=== PATIENT | female | born 1975 | race Caucasian/White ===

== ENCOUNTER → 2020-08-14 17:21 | Outpatient (CLI) | payer OTHER, SELFPAY ==
--- NOTE | ~2020-08-14 | XR_ITS ---
EXAMINATION: XR ankle LT min 3V, XR foot LT min 3V EXAM DATE: 08/14/2020 17:46 INDICATION: Initial encounter following injury, with pain of the left foot, ankle. Possible stress f racture. TECHNIQUE: Left foot dorsoplantar, lateral and oblique projections obtained and reviewed. Left ankle frontal, lateral and oblique projections obtained and reviewed. There is no prior study for compari son. FINDINGS: Left metatarsal bones unremarkable. The left ankle mortise appears intact. No perioste al reaction or band of sclerosis to suggest subacute stress fracture. There are no bony erosions iden tified. There are no acute fractures or dislocations identified. There is no subcutaneous gas. The soft tissue is unremarkable. There are no radiopaque foreign bodies. IMPRESSION: 1. Unremarkable left foot, ankle exam. Reviewed, dictated and finalized at location B. IMPRESSION: 1. Unremarkable left foot, ankle exam.
== END ==
PROVIDERS: PCP Internal Medicine; Visit Provider Internal Medicine
DX: M79.672 Pain in left foot (principal)
CPT/HCPCS: 73610; 73630

== ENCOUNTER → 2022-01-24 08:11 | Outpatient (CLI) | payer OTHER, SELFPAY ==
--- NOTE | ~2022-01-24 | MR_ITS ---
EXAMINATION: MR brain/brain stem wo con DATE: 01/24/2022 08:52 INDICATION: Dizziness. TECHNIQUE: Magnetic resonance imaging (MRI) of the brain and brainstem was performed without intraven ous contrast. Sequences included sagittal and axial T1-weighted FSE, axial diffusion-weighted FS EPI, axial T2*-weighted GRE, axial T2-weighted FLAIR Propeller, axial T2-weighted Propeller, small field- of-view coronal FIESTA, small yqsrk-[id number]-zbmc coronal T1-weighted FSE, and small htglb-kr-itny axial T1 -weighted SPGR. Apparent diffusion coefficient (ADC) maps were created. COMPARISON: Brain MRI 03/10/2017 FINDINGS: There are scattered areas of nonspecific increased T2-weighted signal intensity in the cere bral white matter. There is no intracranial hemorrhage, acute infarction, or abnormal intracranial ma ss lesion. The ventricles are normal in size. The internal auditory canals and inner ears are normal. There are bilateral otomastoid effusions. The orbits are normal. IMPRESSION: 1. Stable mild nonspecific cerebral white matter disease. The differential diagnosis includes prematu re chronic small vessel ischemic disease (especially if the patient has cardiovascular risk factors), demyelinating disease such as multiple sclerosis, drug abuse, vasculitis, or reactive astrocytosis ( gliosis) secondary to nonspecific etiology. 2. Bilateral otomastoid effusions. Reviewed, dictated and finalized at location A. IMPRESSION: 1. Stable mild nonspecific cerebral white matter disease. The differential diag nosis includes premature chronic small vessel ischemic disease (especially if t he patient has cardiovascular risk factors), demyelinating disease such as mult iple sclerosis, drug abuse, vasculitis, or reactive astrocytosis (gliosis) seco ndary to nonspecific etiology. 2. Bilateral otomastoid effusions.
== END ==
PROVIDERS: PCP Internal Medicine; Visit Provider Internal Medicine
DX: R42 Dizziness and giddiness (principal); R93.0 Abnormal findings on diagnostic imaging of skull and head, not elsewhere classified
CPT/HCPCS: 70551

== ENCOUNTER 2022-02-25 13:09 | Outpatient (CLI) | payer OTHER, SELFPAY | END 2022-02-25 13:10 | disposition home or self-care (01) | LOC: ANHAUDIO 13:10 | PROVIDERS: PCP Internal Medicine; Visit Provider Otolaryngology | DX: H66.92 Otitis media, unspecified, left ear (principal) | CPT/HCPCS: 92557; 92567 ==

== ENCOUNTER 2022-04-17 07:41 | Outpatient (CLI) | payer OTHER, SELFPAY ==
[2022-04-17 08:17] LABS: Hematocrit 41.2 % (37.0-47.0); Hemoglobin 12.6 g/dL (12.0-15.0)
[2022-04-17 08:37] LABS: Anion Gap 5 mmol/L (8-16); Blood Urea Nitrogen 15 mg/dL (7-17); Calcium 9.3 mg/dL (8.4-10.2); Carbon Dioxide 26 mmol/L (22-30); Chloride 106 mmol/L (98-107); Estimated Glomerular Filt Rate > 60; Glucose 118 mg/dL (65-110); Potassium 4.5 mmol/L (3.4-5.0); Sodium 137 mmol/L (137-145)
== END 2022-04-17 07:42 | disposition home or self-care (01) ==
PROVIDERS: Anesthesiology; PCP Internal Medicine; Visit Provider Otolaryngology
DX: D64.9 Anemia, unspecified (principal); Z79.899 Other long term (current) drug therapy; Z01.818 Encounter for other preprocedural examination
CPT/HCPCS: 36415; 80048; 85014; 85018

== ENCOUNTER 2022-04-22 00:11 | Day surgery (SDC) | payer OTHER, SELFPAY ==
[2022-04-15 10:56] VITALS: BMI 49.1
--- NOTE | 2022-04-15 11:12 | PC.NURSE ---
Report to the Outpatient Waiting Room, entrance under the green pavilion located off [facility], at time 6:30 on date 04/22/22. OR Time: 8:30. - You and your visitor will be asked a series of questions to screen for COVID 19 for your protection. - Only one visitor is allowed at this time. - The patient visitor is requested to leave or wait in car when not with patient. - A mask is required within the hospital. Patients may have clear liquids (water, carbonated beverages, clear teas, apple juice) until 3 hours prior to surgery (5:30) with a maximum of 20 ounces. - No food from midnight until time of surgery Take the following medications with a SIP of water the morning of surgery: INHALERS, CITALOPRAM, LORAZEPAM (IF NEEDED) Medications to discontinue per physician: VITAMINS/SUPPLEMENTS Date to take last dose: 04/18/22 Please no make-up, nail kyrgyz, hairspray, perfume, deodorant, or body powder the day of surgery. No jewelry (including any body piercings) or valuables the day of surgery, leave them at home. Please take a shower or bath the night before, or the morning of, surgery with an antibacterial soap. Wear comfortable, loose fitting clothing. - Jewelry must be removed prior to entering the operating room. Rings and piercings that are not removed may be cut off. - The hospital will not accept responsibility for valuables. - Please leave all valuables, including medications, at home the day of surgery. If you are going home after surgery, a licensed pile driver operator must drive you home. - NO public transportation without another adult. - We recommend that an adult stay with you for 24 hours following discharge. - We also recommend that you do not drive, make important decision, drink alcoholic beverages, or take any drugs that were not prescribed by your health care provider for at least 24 hours after your discharge time. Follow any additional instructions given to you from your surgeon. If you or anyone in your household have experienced Covid symptoms in the past week, please notify your surgeon or the nurse liaison at the phone number below for possible testing. Telephone instructions given to PT - MARGARITA VASQUEZ and asked if any additional questions and then verbalized understanding. Patient advised to call surgeon office or pre surgery nurse liaison [phone] if any additional questions.
--- NOTE | 2022-04-21 06:35 | PM.HPGS ---
History of Present Illness History of Present Illness Consent: Risks, benefits, and alternatives have been discussed and questions answered. Patient agrees to proceed with procedure. Chief complaint: Rt Chronic Otitis Media Narrative: Melissa Alfonso is a 47 year old female she has a long history of tubes and has an air bone gap on both sides with audiogram Review of Systems Review of Systems: All systems reviewed & are unremarkable except as noted in HPI and below Constitutional: Constitutional: Reports as per HPI and Reports no additional constitutional complaints [facility] Past Medical History Medical History (Updated 04/21/22 @ 06:38 by Marco Tucker MD) Anxiety Depression Surgical History Surgical History History of D&C History of placement of ear tubes History of tooth extraction Family History Family History Mother Diabetes mellitus Family history of sleep apnea Hypertension Cerebrovascular accident Father , age 74 Family history of lung cancer Unknown CAD (coronary artery disease) Cerebrovascular accident Social History Social History Smoking status: Never smoker Alcohol intake: current Alcohol use details: EXTREMELY RARE Substance use: never Substance use type: does not use 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 Gender identity (if verbalized by the patient): Female Spiritual care concerns: No Comments social family medical past medical history all unremarkable Meds Home Medications and Allergies Home Medications Medication Instructions Recorded Confirmed Type budesonide-formoterol HFA 160 2 puff inhalation Q12H 09/19/19 04/15/22 History mcg-4.5 mcg/actuation aerosol inhaler (Symbicort) ergocalciferol (vitamin D2) 1,250 50,000 unit PO WEEKLY 09/19/19 04/15/22 History mcg (50,000 unit) capsule fexofenadine 180 mg tablet 180 mg PO DAILY 09/19/19 04/15/22 History (Cyndee Allergy) furosemide 20 mg tablet (Lasix) 20 mg PO QAM 09/19/19 04/15/22 History latanoprost 0.005 % eye drops 1 drop ophthalmic (eye) DAILY 09/19/19 04/15/22 History levalbuterol tartrate 45 2 inhalation inhalation Q6H 09/19/19 04/15/22 History mcg/actuation aerosol inhaler (Xopenex HFA) lorazepam 1 mg tablet 1 mg PO BID PRN Anxiety 09/19/19 04/15/22 History medroxyprogesterone 10 mg tablet 10 mg PO DAILY 09/19/19 04/15/22 History (Provera) brimonidine 0.025 % eye drops 1 drop ophthalmic (eye) QID PRN 09/21/19 04/15/22 History Dry Eyes citalopram 20 mg tablet 20 mg PO DAILY 09/21/19 04/15/22 History cyanocobalamin (vitamin B-12) 1,000 mcg PO DAILY 09/21/19 04/15/22 History 1,000 mcg capsule ferrous sulfate 325 mg (65 mg 325 mg PO DAILY 09/21/19 04/15/22 History iron) tablet rosuvastatin 10 mg tablet (Crestor) 20 mg PO DAILY 05/07/20 04/15/22 History pantoprazole 40 mg tablet,delayed 40 mg PO QAM 07/25/21 04/15/22 History release meclizine 25 mg tablet 25 mg PO TID PRN Vertigo 02/06/22 04/15/22 History multivitamin with minerals-folic 1 tablet PO DAILY 02/06/22 04/15/22 History acid 200 mcg chewable tablet (One-A-Day Women VitaCraves) Allergies Allergy/AdvReac Type Severity Reaction Status Date / Time No Known Drug Allergies Allergy Unknown unknown Verified 04/15/22 10:46 Exam HENMT: Head: normal to inspection Ears: TM abnormal ( TMs retracted bilaterally) General nose exam: Normal nares present Face and sinus: normal facial exam Assessment and Plan Assessment and plan (1) Chronic otitis media of both ears: Code(s): H66.93 - Otitis media, unspecified, bilateral Status: Acute (2) Bilateral chronic otitis media: Code(s): H66.93 - Otitis media, unspecified, bilateral Status: Acute Plan plan is bilateral
[2022-04-22] VITALS (7 sets, daily range): BP systolic 116–149; BP diastolic 72–90; PULSE 65–98; RESP 12–18; TEMP 36.6–36.8; O2SAT 93–100
--- NOTE | 2022-04-22 06:20 | WPDHPUPDATE1 ---
History and Physical Update Update Date/Time: 04/22/22 06:20 History and Physical has been reviewed, including an updated exam of the patient. There are NO changes in the patient's condition. Risks, benefits, and alternatives have been discussed and questions answered. Patient agrees to proceed with procedure.
[2022-04-22] MEDS: LACTATED RINGERS 1,000 ML 30 ML IV CONT (07:00)
[2022-04-22] MEDS: ACETAMINOPHEN 500 MG TABLET 1000 MG PO (07:03)
--- NOTE | 2022-04-22 07:13 | WPDANESEPPF ---
Anes - Initial Pre Proc Eval Procedure: Operation Date: 04/22/22 08:30 Proposed Procedures p Right Myringotomy with T-Tube Insertion - Marco Tucker MD Date/Time: 04/22/22 07:13 Surgeon: Marco Tucker MD Pre Op Diagnosis: Rt Chronic Otitis Media Patient Data Age: 47 Gender: F Height: 1.56 m Weight: 120 kg Allergies Allergy/AdvReac Type Severity Reaction Status Date / Time No Known Drug Allergies Allergy Unknown unknown Verified 04/15/22 10:46 Home Medications Medication Instructions Recorded Confirmed Type budesonide-formoterol HFA 160 2 puff inhalation Q12H 09/19/19 04/15/22 History mcg-4.5 mcg/actuation aerosol inhaler (Symbicort) ergocalciferol (vitamin D2) 1,250 50,000 unit PO WEEKLY 09/19/19 04/15/22 History mcg (50,000 unit) capsule fexofenadine 180 mg tablet 180 mg PO DAILY 09/19/19 04/15/22 History (Cyndee Allergy) furosemide 20 mg tablet (Lasix) 20 mg PO QAM 09/19/19 04/15/22 History latanoprost 0.005 % eye drops 1 drop ophthalmic (eye) DAILY 09/19/19 04/15/22 History levalbuterol tartrate 45 2 inhalation inhalation Q6H 09/19/19 04/15/22 History mcg/actuation aerosol inhaler (Xopenex HFA) lorazepam 1 mg tablet 1 mg PO BID PRN Anxiety 09/19/19 04/15/22 History medroxyprogesterone 10 mg tablet 10 mg PO DAILY 09/19/19 04/15/22 History (Provera) brimonidine 0.025 % eye drops 1 drop ophthalmic (eye) QID PRN 09/21/19 04/15/22 History Dry Eyes citalopram 20 mg tablet 20 mg PO DAILY 09/21/19 04/15/22 History cyanocobalamin (vitamin B-12) 1,000 mcg PO DAILY 09/21/19 04/15/22 History 1,000 mcg capsule ferrous sulfate 325 mg (65 mg 325 mg PO DAILY 09/21/19 04/15/22 History iron) tablet rosuvastatin 10 mg tablet (Crestor) 20 mg PO DAILY 05/07/20 04/15/22 History pantoprazole 40 mg tablet,delayed 40 mg PO QAM 07/25/21 04/15/22 History release meclizine 25 mg tablet 25 mg PO TID PRN Vertigo 02/06/22 04/15/22 History multivitamin with minerals-folic 1 tablet PO DAILY 02/06/22 04/15/22 History acid 200 mcg chewable tablet (One-A-Day Women VitaCraves) Patient hx anesthesia problems: none Family hx anesthesia problems: none Results Review: All pre-operative results and documents have been reviewed as part of the pre-operative evaluation. [facility] Past Medical History Medical History (Updated 04/22/22 @ 07:15 by Venancio Mcgovern MD) Anxiety Bilateral chronic otitis media Depression Hyperlipidemia Morbid obesity Obstructive sleep apnea (adult) (pediatric) Unspecified asthma Surgical History Surgical History History of D&C History of placement of ear tubes History of tooth extraction Family History Family History Mother Diabetes mellitus Family history of sleep apnea Hypertension Cerebrovascular accident Father , age 74 Family history of lung cancer Unknown CAD (coronary artery disease) Cerebrovascular accident Social History Social History Smoking status: Never smoker Alcohol intake: current Alcohol use details: rarely Substance use: never Substance use type: does not use Living arrangements: alone 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
--- NOTE | 2022-04-22 08:52 | W.PM.PROC2 ---
Procedure Note - Detailed Date of Procedure 04/22/22 Pre-op Diagnosis Rt Chronic Otitis Media Post-op Diagnosis Same Procedure Performed Right myringotomy and T-tube insertion Surgeon Marco Tucker MD Description of Procedure Patient's prednisone is general anesthesia the right ear was inspected an anterosuperior incision made brownish fluid aspirated and a T-tube inserted
== END 2022-04-22 10:26 | disposition home or self-care (01) ==
PROVIDERS: PCP Internal Medicine; Visit Provider Otolaryngology
PROC: (CPT 69436; principal; 2022-04-22 08:30)
DX: H66.91 Otitis media, unspecified, right ear (principal); F41.9 Anxiety disorder, unspecified; F32.A Depression, unspecified; E78.5 Hyperlipidemia, unspecified; G47.33 Obstructive sleep apnea (adult) (pediatric); J45.909 Unspecified asthma, uncomplicated; E66.01 Morbid (severe) obesity due to excess calories; Z68.43 Body mass index [BMI] 50.0-59.9, adult; Z79.51 Long term (current) use of inhaled steroids
CPT/HCPCS: 69436; 36415; 80048; 85014; 85018; A9270; J1100; J2250; J2405; J2704; J3010; J7120

== ENCOUNTER 2023-02-28 12:05 | Emergency (ER) | payer OTHER, SELFPAY ==
--- NOTE | ~2023-02-28 | XR_ITS ---
EXAMINATION: XR chest 2V DATE: 02/28/2023 12:37 INDICATION: Cough and wheezing TECHNIQUE: PA and lateral views of the chest are obtained. COMPARISON: None available FINDINGS: There are minimal airspace opacities of the lung bases. No pleural effusion or pneumothorax . The cardiomediastinal silhouette is normal. The visualized bones and soft tissues are unremarkable. IMPRESSION: 1. Minimal airspace opacities of the lung bases, consistent with atelectasis versus pneumonia. Reviewed, dictated and finalized at location A. IMPRESSION: 1. Minimal airspace opacities of the lung bases, consistent with atelectasis ve rsus pneumonia.
[2023-02-28 12:13] VITALS: BP 149/96; PULSE 118; RESP 22; TEMP 36.6; O2SAT 96
[2023-02-28 13:02] LABS: Influenza A QL RT-PCR Negative (Negative); Influenza B QL RT-PCR Negative (Negative); SARS-CoV-2 RNA PCR Negative (Negative)
--- NOTE | 2023-02-28 14:56 | ED.GENADULT ---
HPI - General Adult General Chief complaint: Asthma Stated complaint: sob, asthma Time Seen by Provider: 02/28/23 14:41 History of Present Illness HPI narrative: 47-year-old female history of asthma presented to the emergency department for evaluation of 1 week of increased cough and congestion. Patient states she did have follow-up with her primary care physician last week and was started on a Z-Jeffry. Patient was not started on steroids at this time. Patient states that she has felt improved after the Z-Jeffry but once the pack was completed she started having worsening symptoms again. Related Data Home Medications Medication Instructions Recorded Confirmed budesonide-formoterol HFA 160 2 puff inhalation Q12H 09/19/19 12/01/22 mcg-4.5 mcg/actuation aerosol inhaler (Symbicort) ergocalciferol (vitamin D2) 1,250 50,000 unit PO WEEKLY 09/19/19 12/01/22 mcg (50,000 unit) capsule fexofenadine 180 mg tablet 180 mg PO DAILY 09/19/19 12/01/22 (Cyndee Allergy) furosemide 20 mg tablet (Lasix) 20 mg PO QAM 09/19/19 12/01/22 latanoprost 0.005 % eye drops 1 drop ophthalmic (eye) DAILY 09/19/19 12/01/22 levalbuterol tartrate 45 2 inhalation inhalation Q6H 09/19/19 12/01/22 mcg/actuation aerosol inhaler (Xopenex HFA) lorazepam 1 mg tablet 1 mg PO BID PRN Anxiety 09/19/19 12/01/22 medroxyprogesterone 10 mg tablet 10 mg PO DAILY 09/19/19 12/01/22 (Provera) brimonidine 0.025 % eye drops 1 drop ophthalmic (eye) QID PRN 09/21/19 12/01/22 Dry Eyes citalopram 20 mg tablet 20 mg PO DAILY 09/21/19 12/01/22 cyanocobalamin (vitamin B-12) 1,000 mcg PO DAILY 09/21/19 12/01/22 1,000 mcg capsule ferrous sulfate 325 mg (65 mg 325 mg PO DAILY 09/21/19 12/01/22 iron) tablet rosuvastatin 10 mg tablet (Crestor) 20 mg PO DAILY 05/07/20 12/01/22 pantoprazole 40 mg tablet,delayed 40 mg PO QAM 07/25/21 12/01/22 release multivitamin with minerals-folic 1 tablet PO DAILY 02/06/22 12/01/22 acid 200 mcg chewable tablet (One-A-Day Women VitaCraves) Allergies Allergy/AdvReac Type Severity Reaction Status Date / Time No Known Drug Allergies Allergy Unknown unknown Verified 12/01/22 08:20 Review of Systems Review of Systems: All systems reviewed & are unremarkable except as noted in HPI and below PMFSH Past Medical History Medical History Anxiety Bilateral chronic otitis media Depression Hyperlipidemia Morbid obesity Obstructive sleep apnea (adult) (pediatric) Unspecified asthma Surgical History Surgical History History of D&C History of placement of ear tubes History of tooth extraction Family History Family History Mother Diabetes mellitus Family history of sleep apnea Hypertension Cerebrovascular accident Father , age 74 Family history of lung cancer Unknown CAD (coronary artery disease) Cerebrovascular accident Social History Social History Smoking status: Never smoker Alcohol intake: current Alcohol use details: rarely Substance use: never Substance use type: does not use Living arrangements: alone Occupation/Education: occupation 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 HEAD: normocephalic, atraumatic. EYES: PERRLA/EOMI, conjunctivae clear. NOSE: Normal no drainage NECK: Supple. No adenopathy, no masses. RESPIRATORY: Airway patent, respirations nonlabored. Wheezing bilaterally. CARDIOVASCULAR: Regular rate and rhythm without murmurs rubs or gallops. ABDOMINAL: Soft, nontender, nondistended,
[2023-02-28] MEDS: methylPREDNISolone SOD SUCC 125 MG VIAL IV PUSH (15:20)
[2023-02-28 15:24] VITALS: O2SAT 96
[2023-02-28] MEDS: LEVALBUTEROL NEB 1.25 MG/3 ML 2.5 MG INHALATION (15:37)
[2023-02-28] MEDS: AMOXICILLIN/CLAVULANATE K 875-125 MG TAB 1 TABLET PO (16:14)
[2023-02-28] MEDS: AZITHROMYCIN 250 MG TABLET 500 MG PO (16:14)
[2023-02-28 16:20] VITALS: BP 111/50; PULSE 104; RESP 20; O2SAT 99
== END 2023-02-28 16:22 | disposition home or self-care (01) ==
PROVIDERS: Emergency Medicine; Emergency Provider Emergency Medicine; PCP Internal Medicine
DX: J18.9 Pneumonia, unspecified organism (principal); J45.909 Unspecified asthma, uncomplicated; E78.5 Hyperlipidemia, unspecified; G47.33 Obstructive sleep apnea (adult) (pediatric); E66.01 Morbid (severe) obesity due to excess calories; Z68.43 Body mass index [BMI] 50.0-59.9, adult; F41.9 Anxiety disorder, unspecified; F32.A Depression, unspecified
CPT/HCPCS: 71046; 87636; 96374; 99284; A9270; J2930

== ENCOUNTER 2024-11-07 08:05 | Emergency (ER) | payer OTHER, SELFPAY ==
--- NOTE | ~2024-11-07 | XR_ITS ---
Clinical Indication: Shortness of breath PA and lateral views of the chest: Comparison: 02/26/2023 Findings: The lungs are clear, without evidence of focal consolidation or pleural effusion. Cardiome diastinal silhouette is within normal limits. Bones and soft tissues are unremarkable. Impression: Normal chest. Reviewed, dictated and finalized at location . STRIAL PARAMEDIC Impression: Normal chest.
--- NOTE | 2024-11-07 08:09 | ECG_ITS ---
Test Date: 2024-11-07 08:14:28 Measurements Intervals [place] Rate: 78 P: 67 ME: 136 QRS: 27 QRSD: 93 T: 21 QT: 366 QTc: 419 Interpretive Statements SINUS RHYTHM WITH MARKED SINUS ARRHYTHMIA ST DEVIATION AND MODERATE T-WAVE ABNORMALITY, CONSIDER ANTERIOR ISCHEMIA [-0.1+ mV T WAVE IN V3/V4] Poor R wave progression No previous ECG available for comparison Electronically Signed On 11-07-2024 18:14:26 TURNING MACHINE SET UP OPERATOR by Macarena Chand M.D.
[2024-11-07 08:11] VITALS: BP 161/105; PULSE 81; RESP 17; TEMP 36.4; O2SAT 98
[2024-11-07 08:17] VITALS: PULSE 79; O2SAT 98
[2024-11-07 08:35] LABS: Basophils Percent Auto 0.4 % (0.2-1.2); Hematocrit 40.7 % (37.0-47.0); Immature Granulocyte Absolute 0.03 K/mm3 (0.00-0.031); Immature Granulocyte Percent A 0.4 % (0-0.5); Lymphocytes Absolute Auto 2.62 K/mm3 (0.9-3.2); Lymphocytes Percent Auto 35.2 % (18.3-44.2); Mean Corpuscular HGB Conc 31.9 g/dl (32-36); Mean Corpuscular Hemoglobin 27.1 pg (26-34); Mean Corpuscular Volume 84.8 fl (80-100); Mean Platelet Volume 9.6 fl (7.4-10.4); Monocytes Absolute Auto 0.6 K/mm3 (0.1-0.6); Monocytes Percent Auto 7.8 % (2.6-8.5); Neutrophils Absolute Auto 4.2 K/mm3 (1.3-6.7); Neutrophils Percent Auto 56.2 % (45.5-73.1); Platelet Count Result 286 k/mm3 (150-375); Red Cell Distribution Width 14.3 % (11.5-14.5); White Blood Count 7.4 K/mm3 (4.5-10.0)
[2024-11-07 08:58] LABS: Alanine Aminotransferase 45 U/L (6-35); Albumin Level 3.9 g/dL (3.5-5.1); Alkaline Phosphatase 111 U/L (38-126); Anion Gap 5 mmol/L (4-12); Aspartate Amino Transferase 38 U/L (14-36); Bilirubin,Total 0.3 mg/dL (0.2-1.3); Blood Urea Nitrogen 14 mg/dL (7-17); Calcium 9.3 mg/dL (8.4-10.2); Carbon Dioxide 26 mmol/L (22-30); Chloride 106 mmol/L (98-107); Estimated CRCL calculation 74 ml/min; Estimated Glomerular Filt Rate > 60; Glucose 126 mg/dL (65-110); Potassium 3.6 mmol/L (3.4-5.0); Sodium 137 mmol/L (137-145)
[2024-11-07 10:05] VITALS: BP 108/79; PULSE 80; RESP 22; O2SAT 97
[2024-11-07] MEDS: SODIUM CHLORIDE 0.9% IV 1,000 ML 999 ML IV CONT (10:12)
[2024-11-07 10:36] LABS: Troponin I < 0.012 ng/mL (0.000-0.034)
[2024-11-07 11:09] LABS: Influenza A QL RT-PCR Positive (Negative); Influenza B QL RT-PCR Negative (Negative); SARS-CoV-2 RNA PCR Negative (Negative)
[2024-11-07 12:09] VITALS: BP 122/46; PULSE 78; RESP 20; O2SAT 100
[2024-11-07 13:47] VITALS: BP 120/51; PULSE 85; RESP 22; O2SAT 97
--- NOTE | 2024-11-07 13:47 | ED.SOB ---
HPI - SOB/Dyspnea General Chief Complaint: Shortness of Breath/Dyspnea Stated Complaint: cough, SOB Time Seen by Provider: 11/07/24 08:10 Source: patient Limitations: no limitations History of Present Illness HPI Narrative: 49-year-old with a history of hypertension, diabetes, hyperlipidemia complains nausea vomiting cough shortness in the last 2 days however nausea and vomiting better. She denies any abdominal pain. No previous history of COPD or asthma. Denies CAD. MD elicited complaint: shortness of breath and cough Onset (ago): day(s) (3) Timing: constant Exacerbating factors: nothing Relieving factors: nothing Associated symptoms: chest pain and cough Treatment prior to arrival: none Related Data Home oxygen amount: none Home Medications ?Medication ?Instructions ?Recorded ?Confirmed ?Last Taken ?Type budesonide-formoterol HFA 160 2 puff inhalation Q12H 09/19/19 08/08/24 Unknown History mcg-4.5 mcg/actuation aerosol inhaler (Symbicort) ergocalciferol (vitamin D2) 1,250 50,000 unit PO WEEKLY 09/19/19 08/08/24 Unknown History mcg (50,000 unit) capsule fexofenadine 180 mg tablet 180 mg PO DAILY 09/19/19 08/08/24 Unknown History (Cyndee Allergy) furosemide 20 mg tablet (Lasix) 20 mg PO QAM 09/19/19 08/08/24 Unknown History latanoprost 0.005 % eye drops 1 drop ophthalmic (eye) DAILY 09/19/19 08/08/24 Unknown History medroxyprogesterone 10 mg tablet 10 mg PO DAILY 09/19/19 08/08/24 Unknown History (Provera) brimonidine 0.025 % eye drops 1 drop ophthalmic (eye) QID PRN 09/21/19 08/08/24 Unknown History Dry Eyes citalopram 20 mg tablet 20 mg PO DAILY 09/21/19 08/08/24 Unknown History cyanocobalamin (vitamin B-12) 1,000 mcg PO DAILY 09/21/19 08/08/24 Unknown History 1,000 mcg capsule ferrous sulfate 325 mg (65 mg 325 mg PO DAILY 09/21/19 08/08/24 Unknown History iron) tablet rosuvastatin 10 mg tablet (Crestor) 20 mg PO DAILY 05/07/20 08/08/24 Unknown History pantoprazole 40 mg tablet,delayed 40 mg PO QAM 07/25/21 08/08/24 Unknown History release multivitamin with minerals-folic 1 tablet PO DAILY 02/06/22 08/08/24 Unknown History acid 200 mcg chewable tablet (One-A-Day Women VitaCraves) metformin 500 mg tablet 500 mg PO DAILY 04/23/23 08/08/24 Unknown History lorazepam 1 mg tablet 1 mg PO DAILY PRN 09/12/24 Unknown History Allergies Allergy/AdvReac Type Severity Reaction Status Date / Time No Known Drug Allergies Allergy Unknown unknown Verified 11/07/24 08:23 Review of Systems Review of Systems: All systems reviewed & are unremarkable except as noted in HPI and below Constitutional: Constitutional: Reports no additional constitutional complaints Eyes: Eyes: Reports no additional eye complaints ENT: Reports system reviewed and no additional complaints, except as documented Cardiovascular: Cardiovascular: Reports as per HPI Respiratory: Respiratory: Reports as per HPI Gastrointestinal: Gastrointestinal: Reports no additional gastrointestinal complaints Integumentary/Breasts: Skin/Breast: Reports system reviewed and no additional complaints, except as docu PMFSH Past Medical History Medical History Ear infection Hyperlipidemia Bilateral chronic otitis media Morbid obesity Anxiety Depression Obstructive sleep apnea (adult) (pediatric) Unspecified asthma Surgical History Surgical History History of D&C History of placement of ear tubes History of tooth extraction Family History Family History Mother Diabetes mellitus Family history of sleep apnea Hypertension Cerebrovascular accident Father , age 74 Family history of lung cancer Unknown CAD (coronary artery disease) Cerebrovascular accident Social History Social History Social History: Caffeine- soda Smoking status: Never smoker Alcohol intake: current Alcohol use details: RARELY Substance use: never Substance use type: does not use Lack of Transportation: No Lack of Food: Never True Current Housing: I Have Housing Concerned About Future Housing: No Difficulty Paying Gas/Electric Bills: No Difficulty Paying for Meds: No Currently Unemployed: No Education: Associate Degree Difficulty w/ Childcare or Family Care: No Living arrangements: alone Occupation/Education: occupation 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 HEAD: Normocephalic, atraumatic. EYES: PERRLA and EOMI. ENT: Nares clear, no rhinorrhea or epistaxis. Mucous membranes moist. NECK: Supple. CHEST: Clear to auscultation. No respiratory distress. HEART: Regular rate and rhythm. No murmur heard. Normal peripheral pulses. ABDOMEN: Soft, nontender, nondistended, normal active bowel sounds. EXTREMITIES: Normal range of motion. No edema. SKIN: Warm, dry, no rash. NEURO: No focal deficits. Alert and oriented x3. PSYCH: Normal mood and affect. Course Course Emergency Course: Inform patient about the lab work, EKG findings. Advised to take Tylenol ibuprofen for pain. Try to be tested she is not a candidate for Tamiflu at this time is it has been more than 3 days with Vital Signs Vital signs: Vital Signs Temperature 36.4 C L 11/07/24 08:11 Pulse Rate 81 11/07/24 08:11 Respiratory Rate 17 11/07/24 08:11 Blood Pressure 161/105 H 11/07/24 08:11 Pulse Oximetry 98 11/07/24 08:11 Oxygen Delivery Room Air 11/07/24 08:11 Temperature 36.4 C L 11/07/24 08:11 Pulse Rate 78 11/07/24 12:09 Respiratory Rate 20 11/07/24 12:09 Blood Pressure 122/46 L 11/07/24 12:09 Pulse Oximetry 100 11/07/24 12:09 Oxygen Delivery Room Air 11/07/24 08:17 MDM - SOB/Dyspnea Differential Diagnosis Differential diagnosis: Likely acute exacerbation of chronic obstructive airways disease, congestive heart failure, community acquired pneumonia and asthma with exacerbation Medical Records Attestation: I reviewed the patient's medical records. Lab Data Attestation: I reviewed the patient's lab results. 11/07/24 08:26 11/07/24 08:26 Labs: Lab Results 11/07/24 11/07/24 11/07/24 Range/Units 08:25 08:26 10:18 WBC 7.4 (4.5-10.0) K/mm3 RBC 4.80 (4.2-5.4) M/mm3 Hgb 13.0 (12.0-15.0) g/dL Hct 40.7 (37.0-47.0) % MCV 84.8 (80-100) fl MCH 27.1 (26-34) pg MCHC 31.9 L (32-36) g/dl RDW 14.3 (11.5-14.5) % Plt Count 286 (150-375) k/mm3 MPV 9.6 (7.4-10.4) fl Immature Gran % (Auto) 0.4 (0-0.5) % Neut % (Auto) 56.2 (45.5-73.1) % Lymph % (Auto) 35.2 (18.3-44.2) % Wythe % (Auto) 7.8 (2.6-8.5) % Eos % (Auto) 0.0 (0-4.4) % Baso % (Auto) 0.4 (0.2-1.2) % Lymph # (Auto) 2.62 (0.9-3.2) K/mm3 Wythe # (Auto) 0.6 (0.1-0.6) K/mm3 Eos # (Auto) 0.0 (0-0.3) K/mm3 Baso # (Auto) 0.0 (0.0-0.1) K/mm3 Abs Immat Gran (auto) 0.03 (0.00-0.031) K/mm3 Absolute Neuts (auto) 4.2 (1.3-6.7) K/mm3 Absolute Nucleated RBC 0.000 (0.0-0.012) K/mm3 Nucleated RBC % 0.0 (0.0-0.2) % Sodium 137 (137-145) mmol/L Potassium 3.6 (3.4-5.0) mmol/L Chloride 106 (98-107) mmol/L Carbon Dioxide 26 (22-30) mmol/L Anion Gap 5 (4-12) mmol/L BUN 14 (7-17) mg/dL Creatinine 0.90 (0.7-1.0) mg/dL Estim Creat Clear Calc 74 ml/min Estimated GFR > 60 (59 - ) Glucose 126 H (65-110) mg/dL Calcium 9.3 (8.4-10.2) mg/dL Total Bilirubin 0.3 (0.2-1.3) mg/dL AST 38 H (14-36) U/L ALT 45 H (6-35) U/L Alkaline Phosphatase 111 (38-126) U/L Troponin I < 0.012 (0.000-0.034) ng/mL Total Protein 7.0 (6.3-8.2) g/dL Albumin 3.9 (3.5-5.1) g/dL Influenza A (RT-PCR) Positive A (Negative) Influenza B (RT-PCR) Negative (Negative) SARS-CoV-2 RNA (RT-PCR) Negative (Negative) Imaging Data Radiologist's impression: ITS Impressions Chest X-Ray 11/07/24 08:54 Impression: Normal chest. ECG Data EKG #1: ECG completion date: 11/07/24 ECG completion time: 08:14 EKG Interpretation: normal rate (78), no ectopy, non-specific ST changes and NL axis Discharge Plan Discharge Clinical Impression: Influenza A, Chest pain, non-cardiac Patient Disposition: Home, Self-Care Condition: Stable Instructions: Antibiotic Form Additional Instructions: Drink more fluids , rest , take Tylenol or ibuprofen for pain andfever Patient Language: Persian Prescriptions: New ondansetron 4 mg tablet,disintegrating 4 mg PO Q6-8H PRN (Reason: nausea and vomiting) Qty: 14 0RF No Action fexofenadine [Cyndee Allergy] 180 mg tablet 180 mg PO DAILY furosemide [Lasix] 20 mg tablet 20 mg PO QAM latanoprost 0.005 % drops 1 drop EACH EYE DAILY medroxyprogesterone [Provera] 10 mg tablet 10 mg PO DAILY ergocalciferol (vitamin D2) 50,000 unit capsule 50,000 unit PO WEEKLY Patient Comments: PT TAKES ON TUESDAYS Symbicort 160-4.5 mcg/actuation HFA aerosol inhaler 2 puff INHALATION Q12H ferrous sulfate 325 mg (65 mg iron) tablet 325 mg PO DAILY citalopram 20 mg tablet 20 mg PO DAILY cyanocobalamin (vitamin B-12) 1,000 mcg capsule 1,000 mcg PO DAILY brimonidine 0.025 % drops 1 drop EACH EYE QID PRN (Reason: Dry Eyes) rosuvastatin [Crestor] 10 mg tablet 20 mg PO DAILY One-A-Day Women VitaCraves 200 mcg tablet,chewable 1 tablet PO DAILY ofloxacin 0.3 % drops 4 drp otic (ear) TID Qty: 10 2RF Rx Instructions: put 4 drops in each ear t.i.d. with ear up 1 minute afterwards lorazepam 1 mg tablet 1 mg PO DAILY PRN pantoprazole 40 mg tablet,delayed release (DR/EC) 40 mg PO QAM metformin 500 mg tablet 500 mg PO DAILY levalbuterol tartrate [Xopenex HFA] 45 mcg/actuation HFA aerosol inhaler 2 inh inhalation Q6H Qty: 15 0RF Follow-up/Referrals: Michi,Kaiden Welsh MD [Primary Care Provider] - Time of Disposition: 13:46
[2024-11-07 14:04] VITALS: BP 118/67; PULSE 82; RESP 20; TEMP 36.4; O2SAT 100
== END 2024-11-07 14:40 | disposition home or self-care (01) ==
PROVIDERS: Emergency Provider Family Medicine; PCP Internal Medicine
DX: J10.1 Influenza due to other identified influenza virus with other respiratory manifestations (principal); R07.89 Other chest pain; Z20.822 Contact with and (suspected) exposure to COVID-19; I10 Essential (primary) hypertension; E11.9 Type 2 diabetes mellitus without complications; E78.5 Hyperlipidemia, unspecified; E66.01 Morbid (severe) obesity due to excess calories; Z68.42 Body mass index [BMI] 45.0-49.9, adult; G47.33 Obstructive sleep apnea (adult) (pediatric); F32.A Depression, unspecified; F41.9 Anxiety disorder, unspecified; Z79.84 Long term (current) use of oral hypoglycemic drugs; Z79.899 Other long term (current) drug therapy; R94.31 Abnormal electrocardiogram [ECG] [EKG]
CPT/HCPCS: 36415; 71046; 80053; 84484; 85025; 87636; 93005; 96360; 99284; J7030

== ENCOUNTER 2025-08-11 06:53 | Outpatient (CLI) | payer OTHER, SELFPAY ==
--- NOTE | ~2025-08-11 | MR_ITS ---
EXAMINATION: MR knee LT wo con DATE: 08/11/2025 07:33 INDICATION: Medial meniscal tear with posterior TECHNIQUE: Magnetic resonance imaging (MRI) of the left knee was performed without intravenous contrast. Sequences included coronal PD-weighted FSE, coronal PD-weighted FS FSE, sagittal T2-weighted FSE, sagittal PD-weighted FS FSE and axial PD weighted fat saturated FSE. COMPARISON: None. FINDINGS: Evaluation moderately limited by varying degrees of motion artifact sagittal and coronal sequences including several repeated sequences. This renders assessment of the cartilage essentially essentially nondiagnostic with the exception of the patella and the cephalad aspect of the trochlea posterior weightbearing portion of the femoral condyles which are well visualized on the axial imaging which is not affected by motion artifact. This also limits sensitivity for meniscal tear. Medial compartment: Radial tear near the posterior root of the medial meniscus. No evident chondromalacia. Lateral compartment: Lateral meniscus is normal. No evident chondromalacia. Patellofemoral compartment: Shallow chondral ulceration at the lateral aspect of the medial patellar facet. Or fissuring both percent the cartilage thickness at the patellar apical ridge. Ligaments and tendons: Anterior and posterior cruciate ligaments are normal. The medial collateral ligament and fibular collateral ligament complex are normal. The extensor mechanism is normal. The visualized medial and lateral hamstring tendons as well as the iliotibial band are normal. Fluid: Small left knee joint effusion. No loose osteochondral bodies identified. Osseous/other: Normal marrow signal. No fracture or pathologic marrow replacing process. IMPRESSION: 1. Moderately limited evaluation particularly in the medial and lateral compartments due to significant motion artifact on the sagittal and coronal sequences including multiple repeated sequences. 2. Radial tear near the posterior root of the medial meniscus. 2. Moderate grade patellar chondromalacia. Reviewed, dictated and finalized at location A. IMPRESSION: 1. Moderately limited evaluation particularly in the medial and lateral compart ments due to significant motion artifact on the sagittal and coronal sequences including multiple repeated sequences. 2. Radial tear near the posterior root of the medial meniscus. 2. Moderate grade patellar chondromalacia.
== END 2025-08-11 06:54 | disposition home or self-care (01) ==
LOC: MICIMG 06:54
PROVIDERS: PCP Internal Medicine; Visit Provider Orthopaedic Surgery
DX: S83.242A Other tear of medial meniscus, current injury, left knee, initial encounter (principal); X58.XXXA Exposure to other specified factors, initial encounter
CPT/HCPCS: 73721

== ENCOUNTER 2025-09-02 08:58 | Outpatient (CLI) | payer OTHER, SELFPAY ==
--- OUTSIDE RECORDS SUMMARY | 2018-02-09 | XMS_ITS | Encounter Summary ---
Author Organization [facility] Healthcare Address [address] [place] [address] Care Team Providers Care Wire Stockkeeper Name Role Phone Unavailable Primary Care Provider Unavailabl e Reason for Visit * Diagnostic Imaging (Routine) - Closed Specialty Diagnoses / Procedures Referred By Adrienne lai Referred To Contact Procedures Breast Imaging Screening Outside Reference Arcelia Pryor MD [address] [place] [address] Phone: tel: fax: Referral ID Status Reason Start Date Expiration Date Visits Re quested Visits Authorized [id number] Closed 09/04/2022 10/04/2023 1 1 Encounter Details Date Type Department Care Team (Late st Contact Info) Description 02/09/2018 Hospital Encounter [facility]iology [facility] [address] [place] [address] [phone] Social History Tobacco Use Types Packs/Day Years [...] on file 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 There will be no report generated by a [facility] Radiologist. Narrative [facility] - 09/04/2022 2:26 PM CDT EXAMINATION: Images For Reference Purposes Only us Arcelia Pryor MD IMG MAMMO PROCEDURES Fi nal Result [facility] documented in this encounter Visit Diagnoses Not on filedocumented in this encounter
--- OUTSIDE RECORDS SUMMARY | 2019-06-17 | XMS_ITS | Encounter Summary ---
Author Organization [facility] Healthcare Address [address] [place] [address] Care Team Providers Care Division Sales Manager Name Role Phone Unavailable Primary Care Provider Unavailabl e Reason for Visit * Diagnostic Imaging (Routine) - Closed Specialty Diagnoses / Procedures Referred By Adrienne t Referred To Contact Procedures Breast Imaging Screening Outside Reference Arcelia Pryor MD [address] [place] [phone] Phone: tel: fax: Referral ID Status Reason Start Date Expiration Date Visits Re quested Visits Authorized [id number] Closed 09/04/2022 10/04/2023 1 1 Encounter Details Date Type Department Care Team (Late st Contact Info) Description 06/17/2019 Hospital Encounter [facility] Radiology [facility] [address] [place] [address] [phone] Social History Tobacco Use Types Packs/Day Years [...] on file 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 There will be no report generated by a [facility] Radiologist. Narrative RAD_M[facility]MO[facility] - 09/04/2022 2:26 PM CDT EXAMINATION: Images For Reference Purposes Only us Arcelia Pryor MD IMG MAMMO PROCEDURES Fi nal Result [facility] documented in this encounter Visit Diagnoses Not on filedocumented in this encounter
--- OUTSIDE RECORDS SUMMARY | 2020-04-20 | XMS_ITS | Encounter Summary ---
Author Organization [facility] Healthcare Address [address] [place] [address] Care Team Providers Care Sales Assistants And Salespersons Name Role Phone Unavailable Primary Care Provider Unavailabl e Reason for Visit * Diagnostic Imaging (Routine) - Closed Specialty Diagnoses / Procedures Referred By Adrienne t Referred To Contact Procedures Breast Imaging US Outside Reference Arcelia Pryor MD [address] [place] [address] Phone: tel: fax: Referral ID Status Reason Start Date Expiration Date Visits Re quested Visits Authorized [id number] Closed 09/04/2022 10/04/2023 1 1 Encounter Details Date Type Department Care Team (Late st Contact Info) Description 04/20/2020 Hospital Encounter 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 There will be no report generated by a [facility] Radiologist. Narrative RAD_M[facility]MO[facility] - 09/04/2022 2:27 PM CDT EXAMINATION: Images For Reference Purposes Only us Arcelia Pryor MD IMG MAMMO PROCEDURES Fi nal Result [facility] documented in this encounter Visit Diagnoses Not on filedocumented in this encounter
--- OUTSIDE RECORDS SUMMARY | 2020-04-20 00:05 | XMS_ITS | Encounter Summary ---
Author Organization [facility] Healthcare Address [address] [place] [address] Care Team Providers Care Supervisor Webbing Name Role Phone Unavailable Primary Care Provider Unavailabl e Reason for Visit * Diagnostic Imaging (Routine) - Closed Specialty Diagnoses / Procedures Referred By Adrienne t Referred To Contact Procedures Breast Imaging Diagnostic Outside Reference Arcelia Pryor MD [address] [place] [phone] Phone: tel: fax: Referral ID Status Reason Start Date Expiration Date Visits Re quested Visits Authorized [id number] Closed 09/04/2022 10/04/2023 1 1 Encounter Details Date Type Department Care Team (Late st Contact Info) Description 04/20/2020 12:05 AM CDT Hospital Encounter [facility] Radiology [facility] [address] [place] [address] [phone] Social History Tobacco Use Types Packs/Day Years [...] on file 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 There will be no report generated by a [facility] Radiologist. Narrative RAD_M[facility] - 09/04/2022 2:27 PM CDT EXAMINATION: Images For Reference Purposes Only us Arcelia Pryor MD IMG MAMMO PROCEDURES Fi nal Result [facility] documented in this encounter Visit Diagnoses Not on filedocumented in this encounter
--- OUTSIDE RECORDS SUMMARY | 2021-01-18 01:00 | XMS_ITS | Encounter Summary ---
Author Organization [facility] Healthcare Address [address] [place] [address] Care Team Providers Care Bulkhead Carpenter Name Role Phone Unavailable Primary Care Provider Unavailabl e Reason for Visit * Diagnostic Imaging (Routine) - Closed Specialty Diagnoses / Procedures Referred By Adrienne t Referred To Contact Procedures Breast Imaging US Outside Reference Arcelia Pryor MD [address] [place] [id number] Phone: tel: fax: Referral ID Status Reason Start Date Expiration Date Visits Re quested Visits Authorized [id number] Closed 09/04/2022 10/04/2023 1 1 Encounter Details Date Type Department Care Team (Late st Contact Info) Description 01/18/2021 Hospital Encounter [facility]) [address] [place] [address] [phone] Social History Tobacco Use Types Packs/Day Years [...] on file 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 There will be no report generated by a [facility] Radiologist. Narrative [facility] - 09/04/2022 2:27 PM CDT EXAMINATION: Images For Reference Purposes Only us Arcelia Pryor MD IMG MAMMO PROCEDURES Fi nal Result [facility] documented in this encounter Visit Diagnoses Not on filedocumented in this encounter
--- OUTSIDE RECORDS SUMMARY | 2025-09-02 09:01 | XMS_ITS | Clinical Summary ---
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 Name Role Phone Kaiden Borden MD Primary Care Provider [phone] Allergies No known active allergies Medications latanoprost (XALATAN) 0.005 % ophthalmic solution Administer 1 drop into both eyes nightly Active brimonidine (ALPHAGAN) 0.2 % ophthalmic solution 1 drop 2 (two) times a day Active medroxyPROGESTE Deandre (PROVERA) 10 mg tablet Take 10 mg by mouth daily 1 tablet for the first 10 days of the month Active budesonide-form oteroL (SYMBICORT) 160-4.5 mcg/actuation inhaler INHALE TWO PUFFS BY MOUTH TWICE A DAY IN THE MORNING AND IN THE EVENING 1 Active levalbuterol (XOPENEX HFA) 45 mcg/actuation inhaler INHALE TWO PUFFS BY MOUTH EVERY SIX HOURS NEEDED 0 Active fexofenadine (GINA) 180 mg tablet Take 180 mg by mouth daily Active polyethylene glycol (GoLYTELY) 236-22.74-6.74 -5.86 gram solution Drink 2L (half of jug) at 6:00pm night before procedure and 2L (remaining half of jug) at 4:30am day of test per the instructions received from our office. 4000 mL 2 Active montelukast (SINGULAIR) 10 mg tablet Take 10 mg by mouth every evening 2 Active albuterol HFA (PROVENTIL HFA,VENTOLIN HFA,PROAIR HFA) 90 mcg/actuation inhaler Inhale 2 puffs 3 Active ferrous sulfate 325 mg (65 mg of elemental iron) tablet TAKE 1 TABLET BY MOUTH EVERY DAY WITH BREAKFAST 90 tablet 1 4 Active meclizine (ANTIVERT) 25 mg tabletIndicatio ns:Vertigo Take 1 tablet (25 mg total) by mouth 3 (three) times a day as needed for dizziness 30 tablet [address] (PROTONIX) 40 mg EC tablet Take 1 tablet (40 mg total) by mouth daily 30 tablet 5 5 Active cyanocobalamin (vitamin B-12) 1,000 mcg tablet Take 1 tablet (1,000 mcg total) by mouth daily 90 tablet 1 5 Active ergocalciferol (VITAMIN D) 50,000 unit capsuleIndicati ons:Vitamin D Deficiency Take 1 capsule (50,000 Units total) by mouth once a week 1 pill weekly rotate 2 pills next week then continue to rotate 30 capsule 3 5 Active azithromycin (ZITHROMAX) 250 mg tablet Take 2 tabs (500 mg) by mouth today, than 1 tab (250 mg) daily for 4 days. 6 tablet 5 Active acyclovir (ZOVIRAX) 5 % ointment Apply to affected area 5 times daily for 4 days. 5 g 5 5 03/24/20 26 Active LORazepam (ATIVAN) 1 mg tablet Take 1 tablet (1 mg total) by mouth every 6 (six) hours as needed for anxiety 30 tablet 5 Active rosuvastatin (CRESTOR) 20 mg tablet Take 1 tablet (20 mg total) by mouth daily 90 tablet 1 5 Active metFORMIN (GLUCOPHAGE) 500 mg tablet Take 1 tablet (500 mg total) by mouth daily with breakfast 90 tablet 1 5 Active furosemide (LASIX) 20 mg tablet Take 1 tablet (20 mg total) by mouth every other day One every other daily 90 tablet 1 5 Active citalopram (CeleXA) 20 mg tablet Take 1 tablet (20 mg total) by mouth daily 90 tablet 1 5 Active Active Problems Problem Noted Date Diagnosed Date Mild intermittent asthma without complication Assessment & Plan (07/06/2025 2:29 PM CDT): Stable doing well Assessment & Plan (03/06/2025 2:03 PM CDT): Stable follows with Pulmonary Assessment & Plan (2024 10:49 AM CDT): Continue as before doing well B12 deficiency 12/08/2023 Assessment & Plan (07/06/2025 2:29 PM CDT): Check B12 level at this time Assessment & Plan (03/06/2025 2:02 PM CDT): Stable doing well Depression 12/08/2023 Assessment & Plan (07/06/2025 2:29 PM CDT): Mood has been good Assessment & Plan (03/06/2025 2:02 PM CDT): Continue present Rx Assessment & Plan (2024 10:49 AM CDT): Mood has been excellent continue present Rx Prediabetes 12/08/2023 Assessment & Plan (07/06/2025 2:29 PM CDT): Discussed at length. She is having some side effects from metformin. Mounjaro would be an obvious choice available. She would like to think about that at this time. Check labs Assessment & Plan (03/06/2025 2:02 PM CDT): Blood sugar stable. Has been losing weight Assessment & Plan (2024 10:49 AM CDT): Long conversation. A1c is up. She has not been taking her medicine regularly. Will push her more diet and exercise and consistent medication use. If A1c remains elevated may be a candidate for Mounjaro Mass of left breast 09/23/2022 Overview (09/23/2022): refer to breast center Encounter for screening colonoscopy 09/09/2022 Overview (09/09/2022): Added automatically from request for surgery [id number] Encounters Date Type Department Care Team Description 08/11/2025 Orders Only [facility] [address] [place] [id number] Kaiden Borden MD 07/06/2025 2:15 PM CDT Office Visit [facility] [address] [place] [address] Kaiden Borden MD Prediabetes (Primary Dx) from Last 3 Months Immunizations Immunization Administration Dates Next Due Moderna Sars-cov-2 Monovalen t Booster Vaccination (12+ YRS) 10/29/2021,03/19/2021,02/19/2021 Tdap 11/09/2013 Surgical History Surgery Date Site/Laterality Comments TYMPANOSTOMY TUBE PLACEMENT 04/09/2022 - 05/08/2022 No anesthesia complications DILATION AND CURETTAGE OF UTERUS No anesthesia complications ORAL SURGERY 11/09/2016 - 11/08/2017 dental office-given versed, fentanyl c/b aspiration and R-arrest followed by cardiac arrest-can find documentation media tab 01/23/17 I had undiagnosed HUANG at that time Medical History Medical History Date Comments Hyperlipidemia Anxiety and depression Allergic GERD (gastroesophageal reflux disease) Asthma HUANG on CPAP Family History Medical History Relation Name Comments Lung cancer Father Lung cancer Father's Sister Diabetes Mother Hyperlipidemia Mother Hypertension Mother Skin cancer Mother Stroke Mother Breast cancer Paternal cousin 1 Breast cancer Paternal cousin 2 Relation Name Status Comments Father Father's Sister Mother Paternal cousin 1 Alive Paternal cousin 2 Alive Social History Tobacco Use Types Packs/Day Years Used Date Smoking Tobacco: Never Tobacco Cessation:Counseling Given: Not Answered AUDIT-C Answer Date Recorded Q1: How often [...] on file 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 Gender Identity Not on file Sexual Orientation Not on file Obstetrics History Para Term AB IAB SAB Ectopic Multiple Livin g Live Births 0 0 0 0 0 0 0 0 0 0 0 Last Filed Vital Signs Vital Sign Reading Time Taken Comments Blood Pressure 140/85 07/06/2025 1:53 PM CDT Pulse 84 07/06/2025 1:53 PM CDT Temperature 36.4 C (97.5 F) 10/13/2022 9:35 AM TOUR DRIVER Respiratory Rate 18 10/13/2022 11:50 AM TOUR DRIVER Oxygen Saturation 95% 10/13/2022 11:50 AM TOUR DRIVER Inhaled Oxygen Concentration - - Weight 113.4 kg (250 lb) 07/06/2025 1:53 PM CDT Height 154.9 cm (5' 1) 07/06/2025 1:53 PM CDT Body Mass Index 47.24 07/06/2025 1:53 PM CDT Plan of Treatment Health Maintenance Due Date Last Done Comments Cervical Cancer Screening 1975 Depression Screening 1975 Regular Well Visit/Exam 18-64 1991 Pneumococcal vaccine <65 (1 of 2 - PCV) 1992 Zoster Vaccine (1 of 2) 2023 DTaP/Tdap/Td Vaccine (2 - Td or Tdap) 11/09/2023 11/09/2013 Covid-19 Vaccine ( - 2024-2 6 season) 2025 10/29/2021, 10/29/2021, 03/19/2021, Additional history exists Influenza Vaccine (#1) 2025 Breast Cancer Screening-Mammogram 05/20/2026 05/20/2025, 03/10/2024, 09/23/2022 Colon Cancer Screening-Colonoscopy 10/13/20322021 Hepatitis B Screening Completed 01/24/2017 Hepatitis C Screening Completed 01/24/2017 Procedures Procedure Name Priority Date/Time Associated Diagnosis Comments SCAN - RADIOLOGY/IMAGING 08/11/2025 9:15 AM CDT POCT HEMOGLOBIN A1C Routine 07/06/2025 1 :55 PM CDT Prediabetes SCREENING MAMMOGRAM BILATERAL W RISHABH Schedule Routine, Read Routine (OP Routine) 05/20/2025 8:33 AM CDT Screening mammogram, encounter for COLONOSCOPY 10/13/2022 10:16 AM TOUR DRIVER HEPATITIS PANEL, ACUTE Routine 01/24/2017 3:03 AM CDT from Last 3 Months or Most Recently Relevant to Health Maintenance Results * SCAN - RADIOLOGY/IMAGING (08/11/2025 9:15 AM CDT) Anatomical Region Laterality Modality Other us Kaiden Borden MD Final Result * (ABNORMAL) POCT hemoglobin A1c (07/06/2025 1:55 PM CDT) Hemoglobin A1C, POC 6.5(A) 4.0 - 5.6 % Blood 07/06/2025 1:55 PM CDT us Kaiden Borden MD POINT OF CARE TEST ORDERABLES Final Result * Screening Mammogram Bilateral W Rishabh (05/20/2025 8:33 AM CDT) Anatomical Region Laterality Modality Breast Bilateral Mammography Impressions 05/22/2025 3:31 PM CDT Bilateral No evidence of malignancy in either breast. OVERALL BI-RADS FINAL ASSESSMENT: 1 - Negative RECOMMENDATION: Recommend bilateral annual screening mammography. Narrative 05/22/2025 3:31 PM CDT EXAMINATION: Screening Mammogram Bilateral W Rishabh: 05/20/2025 COMPARISON: Relevant prior studies available at the time of interpretation were reviewed, including the most recent mammogram on: 03/10/2024. TECHNIQUE: Mammography was performed with 2D and digital breast tomosynthesis (DBT) images. CAD was utilized. BREAST PARENCHYMAL COMPOSITION: The breasts are almost entirely fatty. FINDINGS: Bilateral There is no suspicious mass, calcification, or architectural distortion in either breast. us Self Screening Mammogram IMG MAMMO PROCEDURES Fi nal Result * COLONOSCOPY (10/13/2022 10:16 AM TOUR DRIVER) Anatomical Region Laterality Modality Other Narrative Procedure Note Andrade Hendricks MD - 10/13/2022 10:16 AM [facility] ENDOSCOPY LAB Patient Name: eMlissa Alfonso Procedure Date: 10/13/2022 10:16 AM Date of : 1975 Admit Type: Outpatient Age: 47 Gender: Female Attending MD: Andrade Hendricks M.D. Room: [facility] ENDOSCOPY ROOM 04 Note Status: Finalized Procedure: Colonoscopy Indications: Screening for colorectal malignant neoplasm, has family h/o CRC (grandfather) Providers: Andrade Hendricks M.D. Referring MD: Kaiden Borden M.D. Medicines: Monitored Anesthesia Care Complications: No immediate complications. Estimated Blood Loss: Estimated blood loss: none. Estimated blood loss: none. Procedure: Pre-Anesthesia Assessment: - Prior to the procedure, a History and Physicalwas performed, and patient medications, allergies and sensitivities were reviewed. The patient'stolerance of previous anesthesia was reviewed. - The risks and benefits of the procedure and the sedation options and risks were discussed with the patient. All questions were answered and informed consent was obtained. - Immediately prior to administration ofmedications, the patient was re-assessed for adequacy to receive sedatives. - Sedation was administered by an anesthesia professional. Deep sedation was attained. The benefits, risks and alternatives of theprocedure and sedation were discussed and informed consentwas obtained. All questions were answered. Please referto the signed informed consent document in the medical record. The colonoscopy was performed without difficulty. The patient tolerated the procedurewell. The scope was passed under direct vision. The [id number] was introduced through the anusand advanced to the ileum, cecum, identified by appendiceal orifice and ileocecal valve. Thequality of the bowel preparation was fair. The quality ofthe bowel preparation was evaluated using the BBPS([place] Bowel Preparation Scale) with scores of 7: RightColon = 3 (entire mucosa seen well with no residual staining, small fragments of stool or opaqueliquid), Transverse Colon = 2 (minor amount of residual staining, small fragments of stool and/or opaque liquid, but mucosa seen well) and Left Colon = 2 (minor amount of residual staining, small fragmentsof stool and/or opaque liquid, but mucosa seen well).The total BBPS score equals 7. The quality of the bowel preparation was fair. The bowel preparation usedwas GoLYTELY via split dose instruction. Bowel prep was administered using a split dose. Findings: The perianal and digital rectal examinations were normal. Normal ileum The colon (entire examined portion) appeared normal. The retroflexed view of the distal rectum and anal verge was normaland showed no anal or rectal abnormalities. Impression: - Preparation of the colon was fair. - Ileum was normal - The entire examined colon is normal. - The distal rectum and anal verge are normal on retroflexion view. - No specimens collected. Recommendation: - Discharge patient to home. - Repeat colonoscopy in 5 years for screeningpurposes (fair prep and family h/o CRC). - The findings and recommendations were discussedwith the patient. - . Attending Participation: I personally performed the entire procedure. Electronically signed by Andrade Hendricks MD Andrade Hendricks M.D. 10/13/2022 11:32:19 AM Number of Addenda: 0 Note Initiated On: 10/13/2022 10:16 AM Andrade Hendricks MD ENDOSCOPY PROCEDURES F inal Result * Hepatitis panel, acute (01/24/2017 3:03 AM CDT) HepBsAg NONREACT NONREACTIVE 01/24/2017 5:56 AM [facility] [place] REI HISTORICAL RESULTS Comment: Siemens CentaurXP using MECCA (chemiluminescent immunoassay) technology. NONREACTIVE: IgM antibodies to Hepatitis B Surface antigen not detected. REACTIVE: IgM antibodies to Hepatitis B Surface antigen detected. Reactive results will be confirmed by neutralization testing. HBsAb qn < 3.10 mIU/mL 01/24/2017 5:45 AM [facility] [employer] original products [facility]ISTORICAL RESULTS Comment: Siemens CentaurXP using MECCA (chemiluminescent immunoassay) technology. 9.99 IU/L or less.....NONREACTIVE: IgM antibodies to Hepatitis B Surface antibody are not detected. 10.00 IU/L or greater..REACTIVE: IgM antibodies to Hepatitis B Surface antibody are detected. Hep B core IgM NONREACT NONREACTIVE 7 6:24 AM [facility] HISTORICAL RESULTS Comment: Siemens CentaurXP using MECCA (chemiluminescent immunoassay) technology. NONREACTIVE: IgM antibodies to Hepatitis B Core antigen not detected. EQUIVOCAL: IgM antibodies to Hepatitis B Core antigen may or may not be present. Obtain a new specimen and retest. REACTIVE: IgM antibodies to Hepatitis B Core antigen detected. Hep A IgM NONREACT NONREACTIVE 01/24/2017 6:25 AM [facility] HISTORICAL RESULTS Comment: Siemens CentaurXP using MECCA (chemiluminescent immunoassay) technology. NONREACTIVE: IgM antibodies to Hepatitis A not detected. This does not exclude possibility of exposure to Hepatitis A or early acute infection. EQUIVOCAL:IgM antibodies to Hepatitis A may or may not be present. Suggest recollection and retest. REACTIVE: Antibodies to Hepatitis A detected. Hep C Ab NONREACT NONREACTIVE 01/24/2017 6:23 AM [facility] [facility] HISTORICAL RESULTS Comment: Siemens CentaurXP using MECCA (chemiluminescent immunoassay) technology. NONREACTIVE: Antibodies to Hepatitis C not detected. This does not exclude early acute Hepatitis C infection, possibility of exposure to Hepatitis C, antibodies below detection limit, or to lack of antibody reactivity to the antigen used in this assay. EQUIVOCAL: Antibodies to Hepatitis C may or may not be present. Sample to be confirmed by real-time PCR method. REACTIVE: Antibodies to Hepatitis C detected. 01/24/2017 3:03 AM CDT 01/24/2017 3:06 AM CDT Narrative [facility]IST[facility] - 01/24/2017 6:23 AM CDT Comment add this test the blood drawn today [place] Yousif MD LAB MICROBIOLOGY - [facility] ORDERABLES Final Result [facility] HISTORICAL RESULTS from Last 3 Months or Most Recently Relevant to Health Maintenance Insurance CHOICE PLUS [facility] CHOICE PLUS CHOICE PLUS Advance Directives For more information, please contact: [phone] * Full Code (Latest Code Status on File) Date Activated Date Inactivated Comments 10/13/2022 9:23 AM 10/13/2022 4:06 PM 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
[2025-09-02 09:43] LABS: Hematocrit 41.6 % (37.0-47.0); Hemoglobin 12.7 g/dL (12.0-15.0)
[2025-09-02 10:01] LABS: Anion Gap 2 mmol/L (4-12); Blood Urea Nitrogen 17 mg/dL (7-17); Calcium 9.7 mg/dL (8.4-10.2); Carbon Dioxide 31 mmol/L (22-30); Chloride 101 mmol/L (98-107); Estimated Glomerular Filt Rate > 60; Glucose 111 mg/dL (65-110); Potassium 4.3 mmol/L (3.4-5.0); Sodium 134 mmol/L (137-145)
== END 2025-09-02 08:59 | disposition home or self-care (01) ==
LOC: ANHLAB 08:59
PROVIDERS: PCP Internal Medicine; Visit Provider Anesthesiology
DX: Z01.818 Encounter for other preprocedural examination (principal); E11.9 Type 2 diabetes mellitus without complications; Z78.9 Other specified health status
CPT/HCPCS: 36415; 80048; 85014; 85018

== ENCOUNTER 2025-09-12 08:50 | Outpatient (CLI) | payer OTHER, SELFPAY ==
--- OUTSIDE RECORDS SUMMARY | 2018-02-08 23:00 | XMS_ITS | Encounter Summary ---
Author Organization [facility] Healthcare Address [address] [place] [address] Care Team Providers Care Furnace Packer Name Role Phone Unavailable Primary Care Provider Unavailabl e Reason for Visit * Diagnostic Imaging (Routine) - Closed Specialty Diagnoses / Procedures Referred By Adrienne lai Referred To Contact Procedures Breast Imaging Screening Outside Reference Arcelia Pryor MD [address] [place] [phone] Phone: tel: fax: Referral ID Status Reason Start Date Expiration Date Visits Re quested Visits Authorized [id number] Closed 09/04/2022 10/04/2023 1 1 Encounter Details Date Type Department Care Team (Late st Contact Info) Description 02/09/2018 Hospital Encounter [facility] Radiology [facility] [address] [place] [address] [phone] Social History Tobacco Use Types Packs/Day Years [...] on file 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 2-3 times a week 10/13/2022 9:42 AM Keren Duran RN Q2: How many drinks containing alcohol do you have on a typical day when you are drinking? 1 or 2 10/13/2022 9:42 AM Kerne Duran RN Q3: How often do you have six or more drinks on one occasion? Never 10/13/2022 9:42 AM Keren Duran RN documented as of this encounter Plan of Treatment Not on [...] only and have not been reviewed by [facility] Radiology. There will be no report generated by a [facility] Radiologist. Narrative [facility]MO[facility] - 09/04/2022 2:26 PM CDT EXAMINATION: Images For Reference Purposes Only us Arcelia Pryor MD IMG MAMMO PROCEDURES Fi nal Result [facility] documented in this encounter Visit Diagnoses Not on filedocumented in this encounter
--- OUTSIDE RECORDS SUMMARY | 2019-06-16 23:00 | XMS_ITS | Encounter Summary ---
Author Organization [facility] Healthcare Address [address] [place] [address] Care Team Providers Care Weed Inspector Name Role Phone Unavailable Primary Care Provider Unavailabl e Reason for Visit * Diagnostic Imaging (Routine) - Closed Specialty Diagnoses / Procedures Referred By Adrienne t Referred To Contact Procedures Breast Imaging Screening Outside Reference Arcelia Pryor MD [address] [place] [phone] Phone: tel: fax: Referral ID Status Reason Start Date Expiration Date Visits Re quested Visits Authorized [id number] Closed 09/04/2022 10/04/2023 1 1 Encounter Details Date Type Department Care Team (Late st Contact Info) Description 06/17/2019 Hospital Encounter [facility] Radiology [facility] [address] [place] [address] [phone] Social History Tobacco Use Types Packs/Day Years [...] on file 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 There will be no report generated by a [facility] Radiologist. Narrative RAD[facility] - 09/04/2022 2:26 PM CDT EXAMINATION: Images For Reference Purposes Only us Arcelia Pryor MD IMG MAMMO PROCEDURES Fi nal Result [facility] documented in this encounter Visit Diagnoses Not on filedocumented in this encounter
--- OUTSIDE RECORDS SUMMARY | 2020-04-19 23:00 | XMS_ITS | Encounter Summary ---
Author Organization [facility] Healthcare Address [address] [place] [address] Care Team Providers Care Change Consultant Name Role Phone Unavailable Primary Care Provider Unavailabl e Reason for Visit * Diagnostic Imaging (Routine) - Closed Specialty Diagnoses / Procedures Referred By Adrienne t Referred To Contact Procedures Breast Imaging US Outside Reference Arcelia Pryor MD [address] [place] [address] Phone: tel: fax: Referral ID Status Reason Start Date Expiration Date Visits Re quested Visits Authorized [id number] Closed 09/04/2022 10/04/2023 1 1 Encounter Details Date Type Department Care Team (Late st Contact Info) Description 04/20/2020 Hospital Encounter [facility] Radiology [facility] [address] [place] [address] [phone] Social History Tobacco Use Types Packs/Day Years [...] on file 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 There will be no report generated by a [facility] Radiologist. Narrative RAD_MAMMO[facility] - 09/04/2022 2:27 PM CDT EXAMINATION: Images For Reference Purposes Only us Arcelia Pryor MD IMG MAMMO PROCEDURES Fi nal Result [facility] documented in this encounter Visit Diagnoses Not on filedocumented in this encounter
--- OUTSIDE RECORDS SUMMARY | 2020-04-19 23:05 | XMS_ITS | Encounter Summary ---
Author Organization [facility] Healthcare Address [address] [place] [address] Care Team Providers Care Travel Ot Name Role Phone Unavailable Primary Care Provider Unavailabl e Reason for Visit * Diagnostic Imaging (Routine) - Closed Specialty Diagnoses / Procedures Referred By Adrienne t Referred To Contact Procedures Breast Imaging Diagnostic Outside Reference Arcelia Pryor MD [address] [place] [phone] Phone: tel: fax: Referral ID Status Reason Start Date Expiration Date Visits Re quested Visits Authorized [id number] Closed 09/04/2022 10/04/2023 1 1 Encounter Details Date Type Department Care Team (Late st Contact Info) Description 04/20/2020 12:05 AM CDT Hospital Encounter [facility] Radiology [facility] [address] [place] [address] [phone] Social History Tobacco Use Types Packs/Day Years [...] on file 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 There will be no report generated by a [facility] Radiologist. Narrative RAD_M[facility]MO[facility] - 09/04/2022 2:27 PM CDT EXAMINATION: Images For Reference Purposes Only us Arcelia Pryor MD IMG MAMMO PROCEDURES Fi nal Result [facility] documented in this encounter Visit Diagnoses Not on filedocumented in this encounter
--- OUTSIDE RECORDS SUMMARY | 2021-01-18 | XMS_ITS | Encounter Summary ---
Author Organization [facility] Healthcare Address [address] [place] [address] Care Team Providers Care Coding Director Name Role Phone Unavailable Primary Care Provider Unavailabl e Reason for Visit * Diagnostic Imaging (Routine) - Closed Specialty Diagnoses / Procedures Referred By Adrienne t Referred To Contact Procedures Breast Imaging US Outside Reference Arcelia Pryor MD [address] [place] [address] Phone: tel: fax: Referral ID Status Reason Start Date Expiration Date Visits Re quested Visits Authorized [id number] Closed 09/04/2022 10/04/2023 1 1 Encounter Details Date Type Department Care Team (Late st Contact Info) Description 01/18/2021 Hospital Encounter [facility]) [address] [place] [address] [phone] Social History Tobacco Use Types Packs/Day Years [...] on file 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 There will be no report generated by a [facility] Radiologist. Narrative [facility] - 09/04/2022 2:27 PM CDT EXAMINATION: Images For Reference Purposes Only us Arcelia Pryor MD IMG MAMMO PROCEDURES Fi nal Result [facility] documented in this encounter Visit Diagnoses Not on filedocumented in this encounter
--- NOTE | 2025-09-12 | EST_ITS ---
Patient Info Name: Melissa Alfonso Age: 50 years : 1975 Gender: Female Ht: 61 in Wt: 252 lbs BSA: 2.29 m2 HR: 63 bpm BP: 122 / 53 mmHg Exam Date: 09/12/2025 8:59 AM Patient Status: O Admit Date: 09/12/2025 Exam Type: CA stress test treadmill A treadmill exercise stress test was performed. Staff Attending Provider: Kaiden Borden Exercise Technologist: Dennise Fischer Exercise Physician: Olegario Leyva DO Summary 1. 1. Negative Dre exercise stress test for ischemic ST changes by ECG criteria. 2. 2. Reduced functional capacity, achieving 6.5 METs of workload. 3. 3. Hypertensive response to exercise. 4. 4. Appropriate HR response to exercise. 5. 5. Appropriate HR recovery at 1 minute post exercise. 6. 6. No imaging with stress testing. 7. 7. Patient informed of the above results. Protocol: Dre Stress ECG Details Stage: REST Duration (min): 0 min : 34 sec Speed (mph): 0.0 Grade (%): 0 HR (bpm): 61 SBP (mmHg): --- DBP (mmHg): --- METS: --- Stage: REST Duration (min): 5 min : 2 sec Speed (mph): 0.0 Grade (%): 0 HR (bpm): 67 SBP (mmHg): 122 DBP (mmHg): 53 METS: --- Stage: STAGE 1 Duration (min): 1 min : 0 sec Speed (mph): 1.7 Grade (%): 10 HR (bpm): 115 SBP (mmHg): 122 DBP (mmHg): 53 METS: --- Stage: STAGE 1 Duration (min): 2 min : 0 sec Speed (mph): 1.7 Grade (%): 10 HR (bpm): 140 SBP (mmHg): 122 DBP (mmHg): 53 METS: --- Stage: STAGE 1 Duration (min): 3 min : 0 sec Speed (mph): 1.7 Grade (%): 10 HR (bpm): 113 SBP (mmHg): 188 DBP (mmHg): 61 METS: --- Stage: STAGE 2 Duration (min): 1 min : 0 sec Speed (mph): 2.5 Grade (%): 12 HR (bpm): 105 SBP (mmHg): 188 DBP (mmHg): 61 METS: --- Stage: STAGE 2 Duration (min): 1 min : 0 sec Speed (mph): 2.5 Grade (%): 12 HR (bpm): 104 SBP (mmHg): 188 DBP (mmHg): 61 METS: --- Stage: RECOVERY Duration (min): 0 min : 59 sec Speed (mph): 0.0 Grade (%): 0 HR (bpm): 136 SBP (mmHg): 188 DBP (mmHg): 61 METS: --- Stage: RECOVERY Duration (min): 1 min : 59 sec Speed (mph): 0.0 Grade (%): 0 HR (bpm): 110 SBP (mmHg): 188 DBP (mmHg): 61 METS: --- Stage: RECOVERY Duration (min): 2 min : 59 sec Speed (mph): 0.0 Grade (%): 0 HR (bpm): 97 SBP (mmHg): 188 DBP (mmHg): 61 METS: --- Stage: RECOVERY Duration (min): 3 min : 51 sec Speed (mph): 0.0 Grade (%): 0 HR (bpm): 99 SBP (mmHg): 211 DBP (mmHg): 73 METS: --- Rest HR: 67 bpm Peak HR: 146 bpm Rest Sys BP: 122 mmHg Peak Sys BP: 211 mmHg Max Pred HR: 168 bpm % Max Pred HR: 87 % Target HR: 143 bpm Max RPP: 30,806 bpm*mmHg Cano Score: -1 BP Response: Patient exhibited a hypertensive response with stress Termination Reason: Reached target heart rate or workload Cardiac Symptoms: Shortness of breath Max ST Seg Deviation: -0.90 mm Total Time: 4 min : 0 sec Rest Galloway BP: 53 mmHg Peak G[place]ay BP: 73 mmHg Angina Score: None Total METS: 6.5 Resting ECG Sinus rhythm. Stress ECG No ST changes. Arrhythmias None. Report Signatures
--- OUTSIDE RECORDS SUMMARY | 2025-09-12 09:39 | XMS_ITS | Clinical Summary ---
Author Organization [facility] Address [address] [place] [address] Care Team Providers Care Softwood Faller Name Role Phone Kaiden Borden MD Primary Care Provider [phone] Allergies No known active allergies Medications latanoprost [...] (09/09/2022): Added automatically from request for surgery [id number] Encounters Date Type Department Care Team Description 09/10/2025 Results Follow-Up [facility] [address] [address] Kaiden Borden MD POCT hemoglobin A1c, Comprehensive metabolic panel, TSH, Vitamin B12 09/04/2025 Orders Only [facility] [address] [address] Kaiden Borden MD Abnormal electrocardiogram (ECG) (EKG) (Primary Dx) 09/04/2025 Telephone [facility] [address] [address] Kaiden Borden MD Request For Order(s) 09/02/2025 Orders Only [facility] [address] [address] Kaiden Borden MD 09/01/2025 Orders Only [facility] [address] [address] Kaiden Borden MD 08/11/2025 Orders Only [facility] [address] [address] Kaiden Borden MD 07/06/2025 2:15 PM CDT Office Visit [facility] [address] [address] Kaiden Borden MD Prediabetes (Primary Dx) from [...] on file 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 Gender Identity Not on file Sexual Orientation [...] 36.4 C (97.5 F) 10/13/2022 9:35 AM MACHINE SILVER STRIPPER Respiratory Rate 18 10/13/2022 11:50 AM MACHINE SILVER STRIPPER Oxygen Saturation 95% 10/13/2022 11:50 AM MACHINE SILVER STRIPPER Inhaled Oxygen Concentration - - Weight 113.4 kg (250 lb) 07/06/2025 1:53 PM CDT Height 154.9 cm (5' 1) 07/06/2025 1:53 PM CDT Body Mass Index 47.24 07/06/2025 1:53 PM CDT Plan of Treatment Health Maintenance Due Date Last Done Comments Cervical Cancer Screening 1975 Depression Screening 1975 Hepatitis B Screening 1991 Regular Well Visit/Exam 18-64 1991 Pneumococcal vaccine <65 (1 of 2 - PCV) 1992 Zoster Vaccine (1 of 2) 2023 DTaP/Tdap/Td Vaccine (2 - Td or Tdap) 11/09/2023 11/09/2013 Covid-19 Vaccine (5 - 2024-2 6 season) 2025 10/29/2021, 10/29/2021, 03/19/2021, Additional history exists Influenza Vaccine (#1) 2025 Breast Cancer Screening-Mammogram 05/20/2026 05/20/2025, 03/10/2024, 09/23/2022 Colon Cancer Screening-Colonoscopy 10/13/20322021 Hepatitis C Screening Completed 01/24/2017 Procedures Procedure Name Priority Date/Time Associated Diagnosis Comments VITAMIN B12 Routine 09/09/2025 9:45 AM CDT Prediabetes TSH Routine 09/09/2025 9:45 AM CDT Prediabetes COMPREHENSIVE METABOLIC PANEL Routine 09/09/2025 9:45 AM CDT Prediabetes SCAN - LABS 09/02/2025 11:55 AM CDT CARDIOLOGY DOCUMENT SCAN 09/01/2025 3:04 PM CDT SCAN - RADIOLOGY/IMAGING 08/11/2025 9:15 AM CDT POCT HEMOGLOBIN A1C Routine 07/06/2025 1 :55 PM CDT Prediabetes SCREENING MAMMOGRAM BILATERAL W RISHABH Schedule Routine, Read Routine (OP Routine) 05/20/2025 8:33 AM CDT Screening mammogram, encounter for COLONOSCOPY 10/13/2022 10:16 AM MACHINE SILVER STRIPPER HEPATITIS PANEL, ACUTE Routine 01/24/2017 3:03 AM CDT from Last 3 Months or Most Recently Relevant to Health Maintenance Results * TSH (09/09/2025 9:45 AM CDT) [facility] TSH 2.400 0.450 - 4.500 uIU/mL [facility] - 01 Blood 09/09/2025 9:45 AM CDT 09/09/2025 Narrative [facility] - 09/10/2025 6:42 AM MACHINE SILVER STRIPPER Performed at: [address] [id number] Bank Cashier: Brandon Coonye PhD, Phone: [phone] Kaiden Borden MD LAB BLOOD ORDERABLES Final Re sult Performing Organization Address [facility] de Phone Number [facility] - * Vitamin B12 (09/09/2025 9:45 AM CDT) [facility] Vitamin B12 290 232 - 1,245 pg/mL [facility] - 01 Blood 09/09/2025 9:45 AM CDT 09/09/2025 Narrative [facility] - 09/10/2025 6:42 AM MACHINE SILVER STRIPPER Performed at: [address] [id number] Bank Cashier: Brandon Cooney PhD, Phone: [phone] Kaiden Borden MD LAB BLOOD ORDERABLES Final Re sult Performing Organization Address [facility] Co de Phone Number [facility] - * (ABNORMAL) Comprehensive metabolic panel (09/09/2025 9:45 AM CDT) [facility] Glucose 110(H) 70 - 99 mg/dL [facility] - 01 BUN 18 6 - 24 mg/dL [facility] - 01 Creatinine, Serum 0.98 0.57 - 1.00 mg/dL [facility] - 01 eGFR 69 >59 mL/min/1.7 3 [facility] - 01 BUN/creat ratio 18 9 - 23 [facility] - 01 Sodium 141 134 - 144 mmol/L [facility] - 01 Potassium, sr 4.9 3.5 - 5.2 mmol/L [facility] - 01 Chloride 104 96 - 106 mmol/L [facility] - 01 CO2 26 20 - 29 mmol/L [facility] - 01 Calcium 10.1 8.7 - 10.2 mg/dL [facility] - 01 Protein, sr 6.7 6.0 - 8.5 g/dL [facility] - 01 Albumin 3.9 3.8 - 4.9 g/dL [facility] - 01 Globulin, Total 2.8 1.5 - 4.5 g/dL [facility] - 01 Bilirubin, Total 0.2 0.0 - 1.2 mg/dL [facility] - 01 Alk phos 102 49 - 135 IU/L [facility] - 01 AST 13 0 - 40 IU/L [facility] - 01 ALT 14 0 - 32 IU/L [facility] - 01 Blood 09/09/2025 9:45 AM CDT 09/09/2025 Narrative [facility] - 09/10/2025 6:42 AM MACHINE SILVER STRIPPER Performed at: [address] [id number] Bank Cashier: Brandon Cooney PhD, Phone: [phone] us Kaiden Borden MD LAB BLOOD ORDERABLES Final Re sult [facility] - 01 * SCAN - LABS (09/02/2025 11:55 AM CDT) us Kaiden Borden MD Final Result * Cardiology Document Scan (09/01/2025 3:04 PM CDT) Anatomical Region Laterality Modality Other us Kaiden Borden MD CV CARDIAC SERVICES PROCEDURE S Final Result * SCAN - RADIOLOGY/IMAGING (08/11/2025 9:15 AM [...] nal Result * COLONOSCOPY (10/13/2022 10:16 AM MACHINE SILVER STRIPPER) Anatomical Region Laterality Modality Other Narrative Procedure Note Andrade Hendricks MD - 10/13/2022 10:16 AM CST ENDOSCOPY LAB Patient Name: Melissa Naty Procedure Date: 10/13/2022 10:16 AM Date of : 1975 Admit Type: Outpatient Age: 47 Gender: Female Attending MD: Andrade Hendricks M.D. Room: [facility] ENDOSCOPY ROOM 04 Note Status: Finalized [...] scope was passed under direct vision. The [id number] was introduced through the anusand advanced to the ileum, cecum, identified by appendiceal orifice and ileocecal valve. Thequality of the bowel preparation was fair. The quality ofthe bowel preparation was evaluated using the BBPS([place] Bowel Preparation Scale) with scores of 7: [...] CDT) HepBsAg NONREACT NONREACTIVE 01/24/2017 5:56 AM CDT [facility] HISTORICAL RESULTS Comment: Siemens Checkpoint SurgicalaurXP using MECCA (chemiluminescent immunoassay) technology. NONREACTIVE: IgM antibodies to Hepatitis B Surface antigen not detected. REACTIVE: IgM antibodies to Hepatitis B Surface antigen detected. Reactive results will be confirmed by neutralization testing. HBsAb qn < 3.10 mIU/mL 01/24/2017 5:45 AM T [facility] HISTORICAL RESULTS Comment: Siemens CentaurXP using MECCA (chemiluminescent immunoassay) technology. 9.99 IU/L or less.....NONREACTIVE: IgM antibodies to Hepatitis B Surface antibody are not detected. 10.00 IU/L or greater..REACTIVE: IgM antibodies to Hepatitis B Surface antibody are detected. Hep B core IgM NONREACT NONREACTIVE 7 6:24 AM T [facility] HISTORICAL RESULTS Comment: Siemens CentaurXP using MECCA (chemiluminescent immunoassay) technology. NONREACTIVE: IgM antibodies to Hepatitis B Core antigen not detected. EQUIVOCAL: IgM antibodies to Hepatitis B Core antigen may or may not be present. Obtain a new specimen and retest. REACTIVE: IgM antibodies to Hepatitis B Core antigen detected. Hep A IgM NONREACT NONREACTIVE 01/24/2017 6:25 AM T [facility] HISTORICAL RESULTS Comment: Siemens CentaurXP using MECCA (chemiluminescent immunoassay) technology. NONREACTIVE: IgM antibodies to Hepatitis A not detected. This does not exclude possibility of exposure to Hepatitis A or early acute infection. EQUIVOCAL:IgM antibodies to Hepatitis A may or may not be present. Suggest recollection and retest. REACTIVE: Antibodies to Hepatitis A detected. Hep C Ab NONREACT NONREACTIVE Comment: Siemens CentaurXP using MECCA (chemiluminescent immunoassay) [...] AM CDT 01/24/2017 3:06 AM CDT Narrative [facility] HISTORICAL RESULTS - 01/24/2017 6:23 AM CDT Comment add this test the blood drawn today us [place] Yousif MD [facility] Final Result [facility] HISTORICAL RESULTS from Last 3 Months or Most Recently Relevant to Health Maintenance Insurance CHOICE PLUS CHOICE PLUS CHOICE PLUS Advance Directives For more information, please contact: [phone] * Full Code (Latest Code Status on File) Date Activated Date Inactivated Comments 10/13/2022 9:23 AM 10/13/2022 4:06 PM Care Teams Softwood Faller Relationship Specialty Start Date End Date Kaiden Borden MD PCP - General Internal Medicine 05/01/22
--- OUTSIDE RECORDS SUMMARY | 2025-09-12 09:39 | XMS_ITS | Encounter Summary ---
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 Gender Identity Not on file Sexual Orientation Not on file documented as of this encounter Miscellaneous Notes * Telephone Encounter - Lucia Garces CMA - 09/04/2025 2:27 PM CDT [facility] stress test scheduled for 09-12 @9:30 pt is aware and [place] [facility]ology dept is going to call patient Pt is asymptomatic * Telephone Encounter - Lucia Garces CMA - 09/04/2025 1:53 PM CDT Order entered and left message for [facility] scheduling to call back to schedule also a fax number to send order * Telephone Encounter - Kaiden Borden MD - 09/04/2025 12:06 PM CDT Yes, they had called earlier this morning. I sent a message to Sanjuanita asking that stress test be done prior to surgery. * Telephone Encounter - Ela Walton CMA - 09/04/2025 11:42 AM CDT [facility] is requesting pt have a stress test because of an abnormal EKG she had back in October. Pt called and stated she is looking to get this scheduled this week. Please advise documented in this encounter Plan of Treatment Not on file documented as of this encounter Visit Diagnoses Not on filedocumented in this encounter Care Teams Home Theater Expert Relationship Specialty Start Date End Date Kaiden Borden MD PCP - General Internal Medicine 05/01/22 documented as of this encounter
--- OUTSIDE RECORDS SUMMARY | 2025-09-12 09:40 | XMS_ITS | Encounter Summary ---
Author Organization [facility] Address [address] [place] [address] Care Team Providers Care Sharepoint Application Architect Name Role Phone Kaiden Borden MD Primary Care Provider [phone] Encounter Details Date Type Department Care Team (Latest Contact Info) Description 09/10/2025 Results [facility] [address] [facility] [address] [place] [address] Kaiden Borden MD [address] [facility] [address] [place] [address] POCT hemoglobin A1c, Comprehensive metabolic panel, TSH, Vitamin B12 Social History Tobacco Use Types Packs/Day Years [...] on file 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
== END 2025-09-12 08:51 | disposition home or self-care (01) ==
LOC: ANHCARD 08:55
PROVIDERS: PCP Internal Medicine; Visit Provider Internal Medicine
DX: R94.31 Abnormal electrocardiogram [ECG] [EKG] (principal)
CPT/HCPCS: 93017

== ENCOUNTER 2025-09-20 01:01 | Day surgery (SDC) | payer OTHER, SELFPAY ==
--- OUTSIDE RECORDS SUMMARY | 2018-02-08 23:00 | XMS_ITS | Encounter Summary ---
Author Organization [facility] Healthcare Address [address] [place] [address] Care Team Providers Care Dip Brazier Name Role Phone Unavailable Primary Care Provider Unavailabl e Reason for Visit * Diagnostic Imaging (Routine) - Closed Specialty Diagnoses / Procedures Referred By Adrienne t Referred To Contact Procedures Breast Imaging Screening Outside Reference Arcelia Pryor MD [address] [place] [address] Phone: tel: fax: Referral ID Status Reason Start Date Expiration Date Visits Re quested Visits Authorized [id number] Closed 09/04/2022 10/04/2023 1 1 Encounter Details Date Type Department Care Team (Late st Contact Info) Description 02/09/2018 Hospital Encounter [facility] [address] [place] [address] [phone] Social History Tobacco Use Types Packs/Day Years Used Date Smoking Tobacco: Never AUDIT-C Answer Date Recorded Q1: How often do you have a drink containing alc ohol? 2-3 times a week 10/13/2022 Q2: How many drinks containi ng alcohol do you have on a typical day when you are drinking? 1 or 2 10/13/2022 Q3: How often do you have si x or more drinks on one occasion? 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 Gender Identity Not on file Sexual Orientation Not on file documented as of this encounter Functional Status * Question Answer Date of Assessment Author NATALIA (Nelson) 82 10/13/2022 11:50 AM Jana Tejeda RN * Gordillo Fall Risk Question Answer Date of Assessment Author History of Falling 0 10/13/2022 9:45 AM Keren Duran RN Secondary Diagnosis 15 10/13/2022 9:45 AM CS Keren Kong RN Ambulatory Aids 0 10/13/2022 9:45 AM Keren Baker RN Intravenous Therapy/Heparin/Saline Lock 0 10/13/2022 9:45 AM Parish Duran RN Gait/Transferring 0 10/13/2022 9:45 AM Keren Duran RN Mental Status 0 10/13/2022 9:45 AM Keren Duran RN Morse Fall Risk Score (Score >= 45 places fall precaution order) 15 10/13/2022 9:45 AM Keren Duran RN Prior Fall Event (Autopopulated from EMR) None found 10/13/2022 9:45 AM Keren Duran RN * BP Location Answer Date of Assessment Author Left arm 07/06/2025 1:53 PM CDT Kita Presley MA * Question Answer Date of Assessment Author Is the patient being treated today because it is known or suspected that they prepared, started, or tried to end their life? No 01/08/2022 6:26 PM Yasmeen Chand RN * Question Answer Date of Assessment Author 1. In the past month, have y ou wished you were or that you could go to sleep and not wake up? No 01/08/2022 6:26 PM Yasmeen Chand RN 2. In the past month, have y ou actually had any thoughts of killing yourself? No 01/08/2022 6:26 PM Yasmeen Chand, ROBERTO 6. Have you ever done anythi ng, started to do anything, or prepared to do anything to end your life? No 01/08/2022 6:26 PM Yasmeen Chand, ROBRETO * Suicide Risk Level Answer Date of Assessment Author No risk level 01/08/2022 6:26 PM Yasmeen Chand, ROBERTO * AUDIT-C Score Answer Date of Assessment Author 3 10/13/2022 9:42 AM Parish Duran RN * Alcohol Use Question Answer Date of Assessment Author Q1: How often do you have a drink containing alcohol? 2-3 times a week 10/13/2022 9:42 AM Keren Duran RN Q2: How many drinks containing alcohol do you have on a typical day when you are drinking? 1 or 2 10/13/2022 9:42 AM Keren Duran RN Q3: How often do you have six or more drinks on one occasion? Never 10/13/2022 9:42 AM Keren Duran RN * Fall Risk Assessment Tool - MEDFRAT Question Answer Date of Assessment Author History of falling in last 3 months, including since admission 0 01/08/2022 6:26 PM Yasmeen Chand RN Confusion or disorientation 0 01/08/2022 6: 26 PM Yasmeen Chand RN Intoxicated or sedated 0 01/08/2022 6:26 PM Yasmeen Chand RN Impaired gait 0 01/08/2022 6:26 PM Yasmeen Dotson RN Mobility assist device used 0 01/08/2022 6: 26 PM Yasmeen Chand RN Altered elimination 0 01/08/2022 6:26 PM CS Yasmeen Bernstein RN Fall risk score: (1-2 low ri sk), (3-4 moderate risk), (5 or more high risk) 0 01/08/2022 6:26 PM Yasmeen Chand RN * BP Location Answer Date of Assessment Author Left arm 07/06/2025 1:53 PM CDT Kita Presley MA documented as of this encounter Mental Status * Question Answer Entry Date Author Neuro (WDL) WDL 10/13/2022 9:45 AM Keren Duran RN * Question Answer Entry Date Author Level of Consciousness Alert;Awake 11:40 AM Jana Araujo, RN Orientation Oriented X4 (person, place, time, situation) 10/13/2022 11:40 AM Jana Araujo, RN Neuro (WDL) X 10/13/2022 11:29 AM Jana Araujo, RN documented in this encounter Plan of Treatment Not on file documented as of this encounter Procedures Procedure Name Priority Date/Time Associated Diagnosis Comments BREAST IMAGING MG SCREENING OUTSIDE REFERENCE Routine 02/09/2018 12:00 AM CDT documented in this encounter Results * Breast Imaging Screening Outside Reference (02/09/2018 12:00 AM CDT) Impressions [facility] - 09/04/2022 2:26 PM CDT These images are for Reference purposes only and have not been reviewed by [facility] Radiology. There will be no report generated by a [facility] Radiologist. Narrative [facility] - 09/04/2022 2:26 PM CDT EXAMINATION: Images For Reference Purposes Only us Arcelia Pryor MD IMG MAMMO PROCEDURES Fi nal Result [facility] documented in this encounter Visit Diagnoses Not on filedocumented in this encounter
--- OUTSIDE RECORDS SUMMARY | 2019-06-16 23:00 | XMS_ITS | Encounter Summary ---
Author Organization [facility] Healthcare Address [address] [place] [address] Care Team Providers Care Demand Generation Manager Name Role Phone Unavailable Primary Care Provider Unavailabl e Reason for Visit * Diagnostic Imaging (Routine) - Closed Specialty Diagnoses / Procedures Referred By Adrienne t Referred To Contact Procedures Breast Imaging Screening Outside Reference Arcelia Pryor MD [address] [place] [address] Phone: tel: fax: Referral ID Status Reason Start Date Expiration Date Visits Re quested Visits Authorized [id number] Closed 09/04/2022 10/04/2023 1 1 Encounter Details Date Type Department Care Team (Late st Contact Info) Description 06/17/2019 Hospital Encounter [facility] Radiology [facility] [address] [place] [address] [phone] Social History Tobacco Use Types Packs/Day Years [...] on file 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 No 01/08/2022 6:26 PM Yasmeen Chand RN 6. Have you ever done anythi ng, started to do anything, or prepared to do anything to end your life? No 01/08/2022 6:26 PM Yasmeen Chand RN * Suicide Risk Level Answer Date of Assessment Author No risk level 01/08/2022 6:26 PM Yasmeen Chand RN * AUDIT-C Score Answer Date of Assessment [...] RN Altered elimination 0 01/08/2022 6:26 PM Yasmeen Shabazz RN Fall risk score: (1-2 low ri [...] Level of Consciousness Alert;Awake 11:40 AM Jana Araujo RN Orientation Oriented X4 (person, place, time, situation) 10/13/2022 11:40 AM Jana Araujo RN Neuro (WDL) X 10/13/2022 11:29 AM CLERICAL AIDE TEACHER Jana Lewis, RN documented in this encounter Plan of Treatment Not on file documented as of this encounter Procedures Procedure Name Priority Date/Time Associated Diagnosis Comments BREAST IMAGING MG SCREENING OUTSIDE REFERENCE Routine 06/17/2019 12:00 AM CDT documented in this encounter Results * Breast Imaging Screening Outside Reference (06/17/2019 12:00 AM CDT) Impressions [facility] - 09/04/2022 2:26 PM CDT These images are for Reference purposes only and have not been reviewed by [facility] Radiology. There will be no report generated by a [facility] Radiologist. Narrative RAD[facility]MO[facility] - 09/04/2022 2:26 PM CDT EXAMINATION: Images For Reference Purposes Only us Arcelia Pryor MD IMG MAMMO PROCEDURES Fi nal Result [facility] documented in this encounter Visit Diagnoses Not on filedocumented in this encounter
--- OUTSIDE RECORDS SUMMARY | 2020-04-19 23:00 | XMS_ITS | Encounter Summary ---
Author Organization [facility] Healthcare Address [address] [place] [address] Care Team Providers Care Swedger Name Role Phone Unavailable Primary Care Provider Unavailabl e Reason for Visit * Diagnostic Imaging (Routine) - Closed Specialty Diagnoses / Procedures Referred By Adrienne t Referred To Contact Procedures Breast Imaging US Outside Reference Arcelia Pryor MD [address] [place] [address] Phone: tel: fax: Referral ID Status Reason Start Date Expiration Date Visits Re quested Visits Authorized [id number] Closed 09/04/2022 10/04/2023 1 1 Encounter Details Date Type Department Care Team (Late st Contact Info) Description 04/20/2020 Hospital Encounter [facility] Radiology [facility] [address] [place] [address] [phone] Social History Tobacco Use Types Packs/Day Years [...] on file 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 No 01/08/2022 6:26 PM Yasmeen Chand, ROBERTO * Suicide Risk Level Answer Date of [...] only and have not been reviewed by [facility] Radiology. There will be no report generated by a [facility] Radiologist. Narrative RAD_M[facility]MO[facility] - 09/04/2022 2:27 PM CDT EXAMINATION: Images For Reference Purposes Only us Arcelia Pryor MD IMG MAMMO PROCEDURES Fi nal Result RAD[facility] documented in this encounter Visit Diagnoses Not on filedocumented in this encounter
--- OUTSIDE RECORDS SUMMARY | 2021-01-18 | XMS_ITS | Encounter Summary ---
Author Organization [facility] Healthcare Address [address] [place] [address] Care Team Providers Care Nightman Name Role Phone Unavailable Primary Care Provider Unavailabl e Reason for Visit * Diagnostic Imaging (Routine) - Closed Specialty Diagnoses / Procedures Referred By Adrienne t Referred To Contact Procedures Breast Imaging US Outside Reference Arcelia Pryor MD [address] [place] [id number] Phone: tel: fax: Referral ID Status Reason Start Date Expiration Date Visits Re quested Visits Authorized [id number] Closed 09/04/2022 10/04/2023 1 1 Encounter Details Date Type Department Care Team (Late st Contact Info) Description 01/18/2021 Hospital Encounter [facility] [address] [place] [address] [phone] Social History Tobacco Use Types Packs/Day Years [...] on file Legal Sex Female 9:09 PM [employer] Gender Identity Not on file Sexual Orientation [...] RN Neuro (WDL) X 10/13/2022 11:29 AM [employer] Jana Lewis, RN documented in this encounter Plan of Treatment Not on file documented as of this encounter Procedures Procedure Name Priority Date/Time Associated Diagnosis Comments BREAST IMAGING US OUTSIDE REFERENCE Routine 01/18/2021 12:00 AM [employer] documented in this encounter Results * Breast Imaging US Outside Reference (01/18/2021 12:00 AM [employer]) Impressions [facility] - 09/04/2022 2:27 PM CDT These images are for Reference purposes only and have not been reviewed by [facility] Radiology. There will be no report generated by a [facility] Radiologist. Narrative [facility] - 09/04/2022 2:27 PM CDT EXAMINATION: Images For Reference Purposes Only us Arcelia Pryor MD IMG MAMMO PROCEDURES Fi nal Result [facility] documented in this encounter Visit Diagnoses Not on filedocumented in this encounter
[2025-08-31 08:48] VITALS: BMI 46.9
--- NOTE | 2025-08-31 09:06 | PC.NURSE ---
Addendum entered by Juarez House RN 09/07/25 08:52: Patient says no changes since preop interview. Informed patient to be here at 0900 on 09-20-2025 for surgery at 1100. Patient acknowledges she has a copy of the instructions below and voices understanding. Original Note: [facility] has started construction of its new state of the art ER which will open Spring 2026. With this, we anticipate parking may be a challenge for some our surgical patients and families. Parking spaces are limited but are available for all Surgical, obstetrics, and ER patients sharing this lot. If you arrive and find you are having a hard time finding a parking space, please note that we understand the challenges, please drive around the hospital and park near Hospital Entrance 1. When you enter this entrance, you can ask a volunteer to direct or take you back to the surgical waiting area to check in. We appreciate everyone?s understanding of these expected challenges while we build for your future. Report to the Outpatient Waiting Room, entrance under the green pavilion located off [address], at time _0845_ on date _06-21-3421_. Planned Procedure Time: _1045_.? Time changes happen often and if your time is changed the preop area will call you the afternoon before. - You and your visitor will be asked to self-screen and do not enter if you have any COVID symptoms. Please call surgeon if you need to reschedule. - A mask is optional within the hospital at this time. Patients may have clear liquids (water, carbonated beverages, clear teas, apple juice) until 3 hours prior to surgery with a maximum of 20 ounces. - No food from midnight until time of surgery and no smoking, or chewing tobacco (or any form of nicotine). No chewing gum, candy or mints. Take only the following medications with a SIP of water on the morning of surgery: ___Citalopram, Symbicort, Ear drops, eye drops and if needed Lorazepam.____ DO NOT STOP ANY OF YOUR OTHER PRESCRIPTION MEDICATIONS PRIOR TO SURGERY EXCEPT THE FOLLOWING Hold all vitamins and supplements for 3 days per anesthesiologist. Medications to discontinue per physician Call Dr Neff's office and ask about the Celebrex if need to hold. Date to take last dose____ Please no make-up, nail swiss, hairspray, perfume, deodorant, or body powder the day of surgery.? No jewelry (including any body piercings) or valuables the day of surgery, leave them at home.? Please take a shower or bath the night before, or the morning of, surgery with an antibacterial soap.? Wear comfortable, loose fitting clothing.? - Jewelry must be removed prior to entering the operating room.? Rings and piercings that are not removed may be cut off. - The hospital will not accept responsibility for valuables.? - Please leave all valuables, including medications, at home the day of surgery. If you are going home after surgery, a licensed combine driver must drive you home.? - NO public transportation without another adult if you receive anesthesia. - We recommend that an adult stay with you for 24 hours following discharge. - We also recommend that you do not drive, make important decision, drink alcoholic beverages, or take any drugs that were not prescribed by your health care provider for at least 24 hours after your discharge time. Follow any additional instructions given to you from your surgeon. Telephone instructions given to _Melissa___and asked if any additional questions and then verbalized understanding. Patient advised to call surgeon office or pre surgery nurse liaison [phone] if any additional questions.
--- NOTE | 2025-09-14 08:07 | PM.IMHP ---
H&P: HPI History of Present Illness Date/Time: 09/14/25 08:07 Chief Complaint: Patient has catching locking and pain of the left knee. She has failed conservative treatment like to consider surgical intervention. Review of Systems Musculoskeletal: Musculoskeletal: Reports arthralgias, Reports joint swelling and Reports stiffness Neurologic: Reports abnormal gait [facility] Past Medical History Medical History Ear infection Hyperlipidemia Bilateral chronic otitis media Morbid obesity Anxiety Depression Obstructive sleep apnea (adult) (pediatric) Unspecified asthma Surgical History Surgical History History of D&C History of placement of ear tubes History of tooth extraction Family History Family History Mother Diabetes mellitus Family history of sleep apnea Hypertension Cerebrovascular accident Father , age 74 Family history of lung cancer Unknown CAD (coronary artery disease) Cerebrovascular accident Social History Social History (Updated 08/24/25 @ 07:40 by Syl Barboza [facility]) Social History: Caffeine- soda Smoking status: Never smoker Alcohol intake: current Drinks per week: 3 Alcohol use details: RARELY Substance use: never Substance use type: does not use Lack of Transportation: No Lack of Food: Never True Current Housing: I Have Housing Concerned About Future Housing: No Difficulty Paying Gas/Electric Bills: No Difficulty Paying for Meds: No Currently Unemployed: No Education: Associate Degree Difficulty w/ Childcare or Family Care: No Living arrangements: alone Occupation/Education: occupation 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 Gender identity (if verbalized by the patient): Female Sexual Orientation (if Verbalized by the Patient): Straight or Heterosexual Spiritual care concerns: No Meds Home Medications and Allergies Home Medications ?Medication ?Instructions ?Recorded ?Confirmed ?Type ergocalciferol (vitamin D2) 1,250 50,000 unit PO WEEKLY 09/19/19 08/31/25 History mcg (50,000 unit) capsule latanoprost 0.005 % eye drops 1 drop ophthalmic (eye) DAILY 09/19/19 08/31/25 History medroxyprogesterone 10 mg tablet 10 mg PO DAILY 09/19/19 08/31/25 History (Provera) brimonidine 0.025 % eye drops 1 drop ophthalmic (eye) QID PRN 09/21/19 08/31/25 History Dry Eyes citalopram 20 mg tablet 20 mg PO DAILY 09/21/19 08/31/25 History cyanocobalamin (vitamin B-12) 1,000 mcg PO DAILY 09/21/19 08/31/25 History 1,000 mcg capsule ferrous sulfate 325 mg (65 mg 325 mg PO DAILY 09/21/19 08/31/25 History iron) tablet pantoprazole 40 mg tablet,delayed 40 mg PO QAM 07/25/21 08/31/25 History release multivitamin with minerals-folic 1 tablet PO DAILY 02/06/22 08/31/25 History acid 200 mcg chewable tablet (One-A-Day Women VitaCraves) metformin 500 mg tablet 500 mg PO DAILY 04/23/23 08/31/25 History lorazepam 1 mg tablet 1 mg PO DAILY PRN anxiety 09/12/24 08/31/25 History ondansetron 4 mg disintegrating 4 mg PO Q6-8H PRN nausea and 11/07/24 08/31/25 Rx tablet vomiting #14 tabs montelukast 10 mg tablet 10 mg PO DAILY 03/13/25 08/31/25 History ofloxacin 0.3 % eye drops 4 drp otic (ear) TID acute otitis 03/13/25 08/31/25 Rx media right #10 mL levalbuterol tartrate 45 2 inh inhalation Q6H #15 grams 04/12/25 08/31/25 Rx mcg/actuation aerosol inhaler (Xopenex HFA) budesonide-formoterol HFA 160 2 puff inhalation BID #10.2 grams 06/20/25 08/31/25 Rx mcg-4.5 mcg/actuation aerosol inhaler (Symbicort) Caltrate 1 cap PO DAILY 08/03/25 08/31/25 History aspirin 81 mg tablet 81 mg PO DAILY 08/03/25 09/07/25 History celecoxib 200 mg capsule (Celebrex) 200 mg PO DAILY #30 caps 08/03/25 08/31/25 Rx furosemide 20 mg tablet (Lasix) 20 mg PO QAM 08/03/25 08/31/25 History rosuvastatin 20 mg tablet 20 mg PO HS 08/31/25 08/31/25 History Allergies Allergy/AdvReac Type Severity Reaction Status Date / Time No Known Drug Allergies Allergy Unknown unknown Verified 09/07/25 08:52 Exam Narrative: Patient has catching locking and pain with manipulation of the knee. She has a positive Evert's and tenderness to palpation. She walks with antalgic gait. She has tenderness on the joint pain. She has pain with any motion. Neurologically she appears to be intact. Eyes: General: appearance normal, both eyes and all related structures Neck: Neck: supple Resp: Effort & Inspection: normal respiratory effort Cardio: Rate: regular rate Rhythm: regular rhythm Radiology Reports: Comments: Magnetic Resonance Report Signed Patient: Melissa Alfonso EXAMINATION: MR knee LT wo con DATE: 08/11/2025 07:33 INDICATION: Medial meniscal tear with posterior TECHNIQUE: Magnetic resonance imaging (MRI) of the left knee was performed without intravenous contrast. Sequences included coronal PD-weighted FSE, coronal PD-weighted FS FSE, sagittal T2-weighted FSE, sagittal PD-weighted FS FSE and axial PD weighted fat saturated FSE. COMPARISON: None. FINDINGS: Evaluation moderately limited by varying degrees of motion artifact sagittal and coronal sequences including several repeated sequences. This renders assessment of the cartilage essentially essentially nondiagnostic with the exception of the patella and the cephalad aspect of the trochlea posterior weightbearing portion of the femoral condyles which are well visualized on the axial imaging which is not affected by motion artifact. This also limits sensitivity for meniscal tear. Medial compartment: Radial tear near the posterior root of the medial meniscus. No evident chondromalacia. Lateral compartment: Lateral meniscus is normal. No evident chondromalacia. Patellofemoral compartment: Shallow chondral ulceration at the lateral aspect of the medial patellar facet. Or fissuring both percent the cartilage thickness at the patellar apical ridge. Ligaments and tendons: Anterior and posterior cruciate ligaments are normal. The medial collateral ligament and fibular collateral ligament complex are normal. The extensor mechanism is normal. The visualized medial and lateral hamstring tendons as well as the iliotibial band are normal. Fluid: Small left knee joint effusion. No loose osteochondral bodies identified. Osseous/other: Normal marrow signal. No fracture or pathologic marrow replacing process. IMPRESSION: 1. Moderately limited evaluation particularly in the medial and lateral compartments due to significant motion artifact on the sagittal and coronal sequences including multiple repeated sequences. 2. Radial tear near the posterior root of the medial meniscus. 2. Moderate grade patellar chondromalacia. Reviewed, dictated and finalized at location A. Ankle X-Ray 08/15/20 Foot X-Ray 08/15/20 Knee X-Ray 08/03/25 Knee MRI 08/11/25 Orthopedics Result Report 08/03/25 Assessment and Plan Assessment and plan (1) Acute medial meniscus tear of left knee: Code(s): S83.242A - Other tear of medial meniscus, current injury, left knee, initial encounter Status: Acute Assessment and Plan: Patient has medial meniscal tear left knee. She has failed conservative treatment like to consider surgical intervention. I discussed the risks, benefits, limitations, and alternatives patient in detail. Will proceed per her request procedure is arthroscopy left knee partial meniscectomy proceed as indicated. She does have mechanical catching and locking which has not been relieved by conservative treatment.
[2025-09-20] VITALS (16 sets, daily range): BP systolic 109–172; BP diastolic 54–96; PULSE 63–97; RESP 13–25; TEMP 36.3–36.5; O2SAT 90–100
--- OUTSIDE RECORDS SUMMARY | 2025-09-20 01:04 | XMS_ITS | Clinical Summary ---
Author Organization [facility] Address [address] [place] [address] Care Team Providers Care Commercial Cleaner Name Role Phone Kaiden Borden MD Primary Care Provider [phone] Allergies No known active allergies Medications latanoprost [...] (09/09/2022): Added automatically from request for surgery [id number] Encounters Date Type Department Care Team Description 09/12/2025 Results Follow-Up [facility] [address] [place] [phone] Kaiden Borden MD Cardiology Document Scan 09/12/2025 Orders Only [facility] [address] [place] [phone] Kaiden Borden MD 09/10/2025 Results Follow-Up [facility] [address] [phone] Kaiden Borden MD POCT hemoglobin A1c, Comprehensive metabolic panel, TSH, Vitamin B12 09/04/2025 Orders Only [facility] [address] [place] [phone] Kaiden Borden MD Abnormal electrocardiogram (ECG) (EKG) (Primary Dx) 09/04/2025 Telephone [facility] [address] [phone] Kaiden Borden MD Request For Order(s) 09/02/2025 Orders Only [facility] [address] [place] [phone] Kaiden Borden MD 09/01/2025 Orders Only [facility] [address] [place] [phone] Kaiden Borden MD 08/11/2025 Orders Only [facility] [address] [place] [phone] Kaiden Borden MD 07/06/2025 2:15 PM CDT Office Visit [facility] [address] [place] [phone] Kaiden Borden MD Prediabetes (Primary Dx) from [...] on file 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 Gender Identity Not on file Sexual Orientation [...] 36.4 C (97.5 F) 10/13/2022 9:35 AM NURSE STAFF Respiratory Rate 18 10/13/2022 11:50 AM NURSE STAFF Oxygen Saturation 95% 10/13/2022 11:50 AM NURSE STAFF Inhaled Oxygen Concentration - - Weight 113.4 [...] Procedure Name Priority Date/Time Associated Diagnosis Comments CARDIOLOGY DOCUMENT SCAN 09/12/2025 4:42 PM NURSE STAFF CARDIOLOGY DOCUMENT SCAN 09/12/2025 10:24 AM NURSE STAFF VITAMIN B12 Routine 09/09/2025 9:45 AM CDT [...] mammogram, encounter for COLONOSCOPY 10/13/2022 10:16 AM NURSE STAFF HEPATITIS PANEL, ACUTE Routine 01/24/2017 3:03 AM CDT from Last 3 Months or Most Recently Relevant to Health Maintenance Results * Cardiology Document Scan (09/12/2025 4:42 PM NURSE STAFF) Anatomical Region Laterality Modality Other us Kaiden Borden MD [facility] PROCEDURE S Final Result * Cardiology Document Scan (09/12/2025 10:24 AM NURSE STAFF) Anatomical Region Laterality Modality Other us Kaiden Borden MD CV CARDIAC SERVICES PROCEDURE S Final Result * TSH (09/09/2025 9:45 AM CDT) TSH 2.400 0.450 - 4.500 uIU/mL [facility] - 01 Blood 09/09/2025 9:45 AM CDT 09/09/2025 Narrative [facility] - 09/10/2025 6:42 AM NURSE STAFF Performed at: [facility] [id number] [place] Follower: Brandon Cooney PhD, Phone: [phone] us Kaiden Borden MD LAB BLOOD ORDERABLES Final Re sult [facility] - 01 * Vitamin B12 (09/09/2025 9:45 AM CDT) Vitamin B12 290 232 - 1,245 pg/mL [facility] - 01 Blood 09/09/2025 9:45 AM CDT 09/09/2025 Narrative [facility] - 09/10/2025 6:42 AM NURSE STAFF Performed at: [address] [id number] [place] Follower: Brandon Cooney PhD, Phone: [phone] us Kaiden Borden MD LAB BLOOD ORDERABLES Final Re sult [facility] - * (ABNORMAL) Comprehensive metabolic panel (09/09/2025 9:45 AM CDT) [facility] Glucose 110(H) 70 - 99 mg/dL [...] 09/09/2025 Narrative [facility] - 09/10/2025 6:42 AM NURSE STAFF Performed at: [address] [id number] [place] Follower: Brandon Cooney PhD, Phone: [phone] us Kaiden Borden MD LAB BLOOD ORDERABLES Final Re sult [facility] - 01 * SCAN - LABS (09/02/2025 [...] nal Result * COLONOSCOPY (10/13/2022 10:16 AM NURSE STAFF) Anatomical Region Laterality Modality Other Narrative Procedure Note Andrade Hendricks MD - 10/13/2022 10:16 AM CST ENDOSCOPY LAB Patient Name: Melissa Mock Procedure Date: 10/13/2022 10:16 AM Date of : 1975 Admit Type: Outpatient Age: 47 Gender: Female Attending MD: Andrade Hendricks M.D. Room: [facility] ENDOSCOPY ROOM 04 Note Status: Finalized Procedure: [...] scope was passed under direct vision. The [id number] was introduced through the anusand advanced to the ileum, cecum, identified by appendiceal orifice and ileocecal valve. Thequality of the bowel preparation was fair. The quality ofthe bowel preparation was evaluated using the BBPS([place] Bowel Preparation Scale) with scores of 7: [...] CDT) HepBsAg NONREACT NONREACTIVE 01/24/2017 5:56 AM [facility] HISTORICAL RESULTS Comment: Siemens CentaurXP using MECCA (chemiluminescent immunoassay) technology. NONREACTIVE: IgM antibodies to Hepatitis B Surface antigen not detected. REACTIVE: IgM antibodies to Hepatitis B Surface antigen detected. Reactive results will be confirmed by neutralization testing. HBsAb qn < 3.10 mIU/mL 01/24/2017 5:45 AM [facility] HISTORICAL RESULTS Comment: Siemens CentaurXP using MECCA (chemiluminescent immunoassay) technology. 9.99 IU/L or less.....NONREACTIVE: IgM antibodies to Hepatitis B Surface antibody are not detected. 10.00 IU/L or greater..REACTIVE: IgM antibodies to Hepatitis B Surface antibody are detected. Hep B core IgM NONREACT NONREACTIVE 7 6:24 AM [facility] HISTORICAL RESULTS Comment: Siemens CentaurXP using MECCA (chemiluminescent immunoassay) technology. NONREACTIVE: IgM antibodies to Hepatitis B Core antigen not detected. EQUIVOCAL: IgM antibodies to Hepatitis B Core antigen may or may not be present. Obtain a new specimen and retest. REACTIVE: IgM antibodies to Hepatitis B Core antigen detected. Hep A IgM NONREACT NONREACTIVE 01/24/2017 6:25 AM [email or web address] HISTORICAL RESULTS Comment: Siemens CentaurXP using MECCA (chemiluminescent immunoassay) technology. NONREACTIVE: IgM antibodies to Hepatitis A not detected. This does not exclude possibility of exposure to Hepatitis A or early acute infection. EQUIVOCAL:IgM antibodies to Hepatitis A may or may not be present. Suggest recollection and retest. REACTIVE: Antibodies to Hepatitis A detected. Hep C Ab NONREACT NONREACTIVE Comment: Siemens [employer] Medical SolutionsaurXP using MECCA (chemiluminescent immunoassay) technology. NONREACTIVE: Antibodies [...] AM CDT 01/24/2017 3:06 AM CDT Narrative [facility] HISTORICAL RESULTS - 01/24/2017 6:23 AM CDT Comment add this test the blood drawn today [place] Yousif MD LAB MICROBIOLOGY - [facility] ORDERABLES Final Result [facility] HISTORICAL RESULTS from Last 3 Months or Most Recently Relevant to Health Maintenance [place] [address] [facility] CHOICE PLUS CHOICE PLUS Advance Directives For more information, please contact: [phone] * Full Code (Latest Code Status on File) Date Activated Date Inactivated Comments 10/13/2022 9:23 AM 10/13/2022 4:06 PM Care Teams Commercial Cleaner Relationship Specialty Start Date End Date Kaiden Borden MD PCP - General Internal Medicine 05/01/22
--- OUTSIDE RECORDS SUMMARY | 2025-09-20 01:04 | XMS_ITS | Encounter Summary ---
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 Gender Identity Not on file Sexual Orientation Not on file documented as of this encounter Miscellaneous Notes * Telephone Encounter - Lucia Garces CMA - 09/04/2025 2:27 PM CDT [facility] stress test scheduled for 09-12 @9:30 pt is aware and [facility]ology dept is going to call patient Pt is asymptomatic * Telephone Encounter - Lucia Garces CMA - 09/04/2025 1:53 PM CDT Order entered and left message for [facility] scheduling to call back to schedule also a fax number to send order * Telephone Encounter - Kaiden Borden MD - 09/04/2025 12:06 PM CDT Yes, they had called earlier this morning. I sent a message to [facility] asking that stress test be done prior to surgery. * Telephone Encounter - Ela Walton CMA - 09/04/2025 11:42 AM CDT [facility] is requesting pt have a stress test because of an abnormal EKG she had back in October. Pt called and stated she is looking to get this scheduled this week. Please advise documented in this encounter Plan of Treatment Not on file documented as of this encounter Visit Diagnoses Not on filedocumented in this encounter Care Teams Sap Technical Developer Relationship Specialty Start Date End Date Kaiden Borden MD PCP - General Internal Medicine 05/01/22 documented as of this encounter
--- NOTE | 2025-09-20 06:47 | WPDHPUPDATE1 ---
History and Physical Update Update Date/Time: 09/20/25 06:47 History and Physical has been reviewed, including an updated exam of the patient. There are NO changes in the patient's condition. Risks, benefits, and alternatives have been discussed and questions answered. Patient agrees to proceed with procedure. Will proceed with arthroscopy, partial meniscectomy, proceed as indicated. Patient understands that this will not address any arthritis.
--- NOTE | 2025-09-20 07:13 | SUR.PREOP ---
PT IS POST MENOPAUSAL OF 09/20/25
[2025-09-20] MEDS: ACETAMINOPHEN 500 MG TABLET 1000 MG PO (07:56)
[2025-09-20] MEDS: KETOROLAC 15 MG/ML VIAL (*BKC) IV PUSH (07:57)
[2025-09-20] MEDS: LACTATED RINGERS 1,000 ML 30 ML IV CONT ×2 (07:57→09:52)
--- NOTE | 2025-09-20 07:57 | WPDANESEPPF ---
Anes - Initial Pre Proc Eval Procedure: Operation Date: 09/20/25 09:00 Proposed Procedures p Left Knee Arthroscopy Partial Meniscectomy, Proceed As Indicated - Jay Neff MD Date/Time: 09/20/25 07:57 Surgeon: Jay Neff MD Pre Op Diagnosis: Lt Medial Meniscus Tear Patient Data Age: 50 Gender: F Height: 1.56 m Weight: 114.5 kg Last Vital Signs Temp 36.5 C 09/20/25 07:53 Pulse 89 09/20/25 07:53 Resp 16 09/20/25 07:53 BP 125/86 09/20/25 07:53 Pulse Ox 96 09/20/25 07:53 O2 Del Method Room Air 09/20/25 07:53 Allergies Allergy/AdvReac Type Severity Reaction Status Date / Time No Known Drug Allergies Allergy Unknown unknown Verified 09/20/25 07:51 Home Medications ?Medication ?Instructions ?Recorded ?Confirmed ?Type ergocalciferol (vitamin D2) 1,250 50,000 unit PO WEEKLY 09/19/19 08/31/25 History mcg (50,000 unit) capsule latanoprost 0.005 % eye drops 1 drop ophthalmic (eye) DAILY 09/19/19 08/31/25 History medroxyprogesterone 10 mg tablet 10 mg PO DAILY 09/19/19 08/31/25 History (Provera) brimonidine 0.025 % eye drops 1 drop ophthalmic (eye) QID PRN 09/21/19 08/31/25 History Dry Eyes citalopram 20 mg tablet 20 mg PO DAILY 09/21/19 09/20/25 History cyanocobalamin (vitamin B-12) 1,000 mcg PO DAILY 09/21/19 08/31/25 History 1,000 mcg capsule ferrous sulfate 325 mg (65 mg 325 mg PO DAILY 09/21/19 08/31/25 History iron) tablet pantoprazole 40 mg tablet,delayed 40 mg PO QAM 07/25/21 08/31/25 History release multivitamin with minerals-folic 1 tablet PO DAILY 02/06/22 08/31/25 History acid 200 mcg chewable tablet (One-A-Day Women VitaCraves) metformin 500 mg tablet 500 mg PO DAILY 04/23/23 08/31/25 History lorazepam 1 mg tablet 1 mg PO DAILY PRN anxiety 09/12/24 09/20/25 History ondansetron 4 mg disintegrating 4 mg PO Q6-8H PRN nausea and 11/07/24 08/31/25 Rx tablet vomiting #14 tabs montelukast 10 mg tablet 10 mg PO DAILY 03/13/25 08/31/25 History ofloxacin 0.3 % eye drops 4 drp otic (ear) TID acute otitis 03/13/25 08/31/25 Rx media right #10 mL levalbuterol tartrate 45 2 inh inhalation Q6H #15 grams 04/12/25 08/31/25 Rx mcg/actuation aerosol inhaler (Xopenex HFA) budesonide-formoterol HFA 160 2 puff inhalation BID #10.2 grams 06/20/25 09/20/25 Rx mcg-4.5 mcg/actuation aerosol inhaler (Symbicort) Caltrate 1 cap PO DAILY 08/03/25 08/31/25 History aspirin 81 mg tablet 81 mg PO DAILY 08/03/25 09/20/25 History celecoxib 200 mg capsule (Celebrex) 200 mg PO DAILY #30 caps 08/03/25 09/20/25 Rx furosemide 20 mg tablet (Lasix) 20 mg PO QAM 08/03/25 08/31/25 History rosuvastatin 20 mg tablet 20 mg PO HS 08/31/25 08/31/25 History Laboratory Tests 09/20/25 07:38 POC Capillary Glucose 116 H mg/dl (65-105) Patient hx anesthesia problems: none Family hx anesthesia problems: none Results Review: All pre-operative results and documents have been reviewed as part of the pre-operative evaluation. [facility] Past Medical History Medical History Ear infection Hyperlipidemia Bilateral chronic otitis media Morbid obesity Anxiety Depression Obstructive sleep apnea (adult) (pediatric) Unspecified asthma Surgical History Surgical History History of D&C History of placement of ear tubes History of tooth extraction Family History Family History Mother Diabetes mellitus Family history of sleep apnea Hypertension Cerebrovascular accident Father , age 74 Family history of lung cancer Unknown CAD (coronary artery disease) Cerebrovascular accident Social History Social History Social History: Caffeine- soda Smoking status: Never smoker Alcohol intake: current Drinks per week: 3 Alcohol use details: RARELY Substance use: never Substance use type: does not use Lack of Transportation: No Lack of Food: Never True Current Housing: I Have Housing Concerned About Future Housing: No Difficulty Paying Gas/Electric Bills: No Difficulty Paying for Meds: No Currently Unemployed: No Education: Associate Degree Difficulty w/ Childcare or Family Care: No Living arrangements: alone Occupation/Education: occupation 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 Gender identity (if verbalized by the patient): Female Sexual Orientation (if Verbalized by the Patient): Straight or Heterosexual Spiritual care concerns: No Anes - Eval Final PreProcedure Day of Procedure 09/20/25 07:57 Patient weight: morbidly obese Heart: regular rate and rhythm Lungs: clear to auscultation Airway: Mallampati scale class II Neurological: alert and oriented Last oral intake: >/= 8 hours ASA classification: III Emergent: no Anesthetic plan: proceed Anesthesia type and monitoring: general LMA and standard monitoring Results Review: All pre-operative results and documents have been reviewed as part of the pre-operative evaluation. Informed Consent: The patient's anesthetic plan and its attendant risks and benefits were discussed with the patient/family/POA. Questions were solicited and answers provided to the satisfaction of the patient/family/POA.
[2025-09-20] MEDS: ceFAZolin 2 GM in SODIUM CHLORIDE 0.9% IV 50 ML 100 ML IVPB (08:29)
[2025-09-20] MEDS: LIDO 1%/EPINEPHRINE 1:100,000 50 ML VIAL (08:58)
--- NOTE | 2025-09-20 09:13 | P.OP_ITS ---
Procedure Note - Detailed Date of Procedure 09/20/25 Pre-op Diagnosis LEFT Medial Meniscus Tear Post-op Diagnosis Same Procedure Performed LEFT knee arthroscopy with partial meniscectomy Surgeon Jay Neff MD Anesthesia General Indications Pain, Locking and Catching Description of Procedure Patient brought to operating room # 6. An anesthetic was administered. The knee was sterilely prepped and draped in the usual manner. Standard portals were used. Superior medial portal was used for the outflow cannula, inferior lateral portal was used for the scope, inferior medial portal was used for the instruments. Arthroscopy was performed, the patellar femoral joint degenerative changes. The medial compartment showed a complex tear. The lateral compartment showed fraying. The ACL was intact. Using baskets and rosanna the meniscal tear was trimmed back to a stable base so the nothing further could be pulled into the joint. Any loose or delaminated fragments were gently trimmed to a stable base. She had a good size plica was dripped debrided back to a stable base. At this point was no further impingement. The instruments were withdrawn, sutures placed and patient left the operating room in satisfactory condition. Estimated Blood Loss 20 Drains No Packing No Pathology None sent Complications No immediate complications Condition Stable Disposition PACU [facility] Billing Surgery - Charge Forward: Surgery Billing ([id number] [facility])
[2025-09-20] MEDS: fentaNYL CITRATE INJ (*CRX) 100 MCG/2 ML VIAL 25 MCG IV PUSH ×6 (09:54→10:35)
[2025-09-20] MEDS: oxyCODONE HCL (*CRX) 5 MG TAB IR PO (11:24)
[2025-09-20] MEDS: ONDANSETRON INJ 4 MG/2 ML VIAL IV PUSH (11:41)
== END 2025-09-20 13:00 | disposition home or self-care (01) ==
PROVIDERS: PCP Internal Medicine; Visit Provider Orthopaedic Surgery
PROC: (CPT 29870; principal; 2025-09-20 09:00)
DX: M23.332 Other meniscus derangements, other medial meniscus, left knee (principal); E66.01 Morbid (severe) obesity due to excess calories; Z68.42 Body mass index [BMI] 45.0-49.9, adult; Z79.84 Long term (current) use of oral hypoglycemic drugs
CPT/HCPCS: 29881; 82948; J0690; A9270; J1885; J2004; J2250; J2405; J3010; J7120